=== PATIENT | female | born 1960 | race African-American/Black ===

== ENCOUNTER 2017-02-04 12:08 | Inpatient (IN) | payer SELFPAY ==
[2017-02-04] VITALS (17 sets, daily range): BP systolic 101–153; BP diastolic 77–109; PULSE 65–82; RESP 15–32; Ht 205.7 cm; Wt 72.7 kg
[~2017-02-04] VITALS: Ht 205.7 cm; Wt 72.7 kg
[2017-02-04] MEDS ORDERED: ONDANSETRON 4 MG INJ IV STA (12:09)
[2017-02-04] MEDS ORDERED: morphine 4 MG/ML VIAL IV STA (12:09)
[2017-02-04] MEDS ORDERED: ONDANSETRON 4 MG INJ ONE (12:10)
[2017-02-04] MEDS ORDERED: morphine 4 MG/ML VIAL ONE (12:11)
[2017-02-04] MEDS ORDERED: NITROGLYCERIN 2% 1 GM OINT PKT TD STA (12:13)
[2017-02-04] MEDS ORDERED: NITROGLYCERIN (SL) 0.4 MG TAB ONE (12:13)
[2017-02-04] MEDS ORDERED: LIDOCAINE 1% (MDV) 20 ML INJ ONE (12:15)
[2017-02-04] MEDS ORDERED: IODIXANOL LOCM 100 ML BTL ONE ×3 (12:15→13:07)
[2017-02-04] MEDS ORDERED: IOHEXOL 350MG/ML 50 ML BTL ONE (12:15)
[2017-02-04] MEDS ORDERED: HEPARIN 1000 UNITS/ML 10 ML INJ ONE ×2 (12:15→12:57)
[2017-02-04] MEDS ORDERED: VERAPAMIL 5 MG INJ ONE (12:16)
[2017-02-04] MEDS ORDERED: NITROGLYCERIN (IC) 100 MCG/ML INJ ONE (12:16)
[2017-02-04] MEDS ORDERED: MIDAZOLAM 1 MG/ML 2 ML INJ ONE (12:16)
[2017-02-04] MEDS ORDERED: FENTAnyl 50 MCG/ML VIAL ONE (12:17)
--- NOTE | 2017-02-04 12:23 | ERA ---
ER Documentation Chief Complaint Date/Time DATE: 02/04/17 TIME: 12:22 Chief Complaint CHEST PAIN SINCE LAST NIGHT. HPI Patient is a 56-year-old female who smokes who presents with chest pain. The chest pain started last night. Supposedly the patient is under a significant amount of stress at home. The patient describes the chest pain as a crushing type pain that she rates as 10 out of 10. She was brought in by ambulance. She was given 3 sprays of nitroglycerin and 325 mg aspirin by paramedics. She has never had this pain before. Upon review of old medical records this is the patient's first visit to the emergency department. She does not currently have a primary doctor. ROS All systems reviewed and are negative except as per history of present illness. Allergies Allergies: Coded Allergies: No Known Allergy (Unverified , 02/04/17) PMhx/Soc Medical and Surgical Hx: pt denies Medical Hx, pt denies Surgical Hx Hx Alcohol Use: No Hx Substance Use: No Hx Tobacco Use: Yes Smoking Status: Current every day smoker FmHx Family History: coronary disease Physical Exam Vitals Vital Signs Date Time Temp Pulse Resp B/P Pulse Ox O2 Delivery O2 Flow Rate FiO2 02/04/17 12:26 77 34 170/115 Room Air 02/04/17 12:08 97.7 84 18 178/116 100 Physical Exam Const: Moderate distress secondary to pain Head: Atraumatic Eyes: Normal Conjunctiva ENT: Normal External Ears, Nose and Mouth. Neck: Full range of motion..~ No meningismus. Resp: Clear to auscultation bilaterally Cardio: Regular rate and rhythm, no murmurs Abd: Soft, non tender, non distended. Normal bowel sounds Skin: No petechiae or rashes Back: No midline or flank tenderness Ext: No cyanosis, or edema Neur: Awake and alert Psych: Normal Mood and Affect Result Diagram: 02/04/17 1220 02/04/17 1220 Results 24 hrs Laboratory Tests Test 02/04/17 12:20 White Blood Count 4.710^3/ul Red Blood Count 5.5710^6/ul Hemoglobin 17.9g/dl Hematocrit 52.4% Mean Corpuscular Volume 94.1fl Mean Corpuscular Hemoglobin 32.1pg Mean Corpuscular Hemoglobin Concent 34.2g/dl Red Cell Distribution Width 13.0% Platelet Count 69091^3/UL Mean Platelet Volume 11.4fl Neutrophils % 72.0% Lymphocytes % 23.8% Monocytes % 4.0% Eosinophils % 0.0% Basophils % 0.0% Nucleated Red Blood Cells % 0.0/100WBC Neutrophils # 3.410^3/ul Lymphocytes # 1.110^3/ul Monocytes # 0.210^3/ul Eosinophils # 0.010^3/ul Basophils # 0.010^3/ul Nucleated Red Blood Cells # 0.010^3/ul Prothrombin Time 13.2Sec Prothrombin Time Ratio 1.0 INR International Normalized Ratio 1.00 Activated Partial Thromboplast Time 31.3Sec Sodium Level 142mmol/L Potassium Level 3.8mmol/L Chloride Level 101mmol/L Carbon Dioxide Level 24mmol/L Anion Gap 21 Blood Urea Nitrogen 8mg/dl Creatinine 0.67mg/dl Glucose Level 167mg/dl Calcium Level 11.3mg/dl Troponin I 10.100ng/ml Current Medications Medications (Trade) Dose Ordered Sig/Atul Route PRN Reason Start Time Stop Time Status Last Admin Dose Admin Morphine Sulfate (morphine) 4 mg ONCE STAT IV 02/04/17 12:09 02/04/17 12:11 DC 02/04/17 12:34 Ondansetron HCl (Zofran Inj) 4 mg ONCE STAT IV 02/04/17 12:09 02/04/17 12:11 DC 02/04/17 12:34 Nitroglycerin (Nitroglycerin 2% Oint) 1 inch ONCE STAT TD 02/04/17 12:13 02/04/17 12:14 DC Nitroglycerin (Nitroglycerin (Sl Tab) 0.4 Mg) 25 tab STK-MED ONCE .ROUTE 02/04/17 12:13 02/04/17 12:14 DC Heparin Sodium (Porcine) (Heparin (1000 Units/ml)) 10,000 unit STK-MED ONCE .ROUTE 02/04/17 12:15 02/04/17 12:16 DC Lidocaine (Xylocaine 1% (Mdv) 20 ml) 20 ml STK-MED ONCE .ROUTE 02/04/17 12:15 02/04/17 12:16 DC Iohexol (Omnipaque 350mg/ ml) 50 ml STK-MED ONCE .ROUTE 02/04/17 12:15 02/04/17 12:16 DC Iodixanol 100 ml 100 ml STK-MED ONCE .ROUTE 02/04/17 12:15 02/04/17 12:16 DC Heparin Sodium/ Sodium Chloride (Heparin 1000 Units/NS (A-Line)) 1,500 ml @ ud STK-MED ONCE .ROUTE 02/04/17 12:15 02/04/17 12:16 DC Midazolam HCl (Versed) 2 mg STK-MED ONCE .ROUTE 02/04/17 12:16 02/04/17 12:17 DC Verapamil HCl (Verapamil) 5 mg STK-MED ONCE .ROUTE 02/04/17 12:16 02/04/17 12:17 DC Nitroglycerin (Nitroglycerin (Intracoronary)) 1,000 mcg STK-MED ONCE .ROUTE 02/04/17 12:16 02/04/17 12:17 DC Fentanyl (Sublimaze) 100 mcg STK-MED ONCE .ROUTE 02/04/17 12:17 02/04/17 12:18 DC Procedures/MDM EKG read by me: Rate/Rhythm: Regular rate and rhythm at a rate of 81 Intervals: Normal Impression: Significant ST elevations in V3 and V4 consistent with acute STEMI Chest x-ray shows cardiomegaly per radiology. Smoking Cessation Therapy: Pt. was lectured for greater than 3 minutes on the health risks of continued smoking and the benefits of cessation. Patient is a 56-year-old female who smokes who presents with a STEMI. She arrived to the emergency department at 1209 and a code STEMI was called at that time based on review of the pipelines superintendent EKG. The pipelines superintendent EKG had not been forwarded by the email system. I spoke with Dr. Weller the hotel operations manager compensation adjuster at 1211. The cardiac cath team was at the bedside at 1212. The patient was transferred to the cardiac Material Damage Adjuster at 1226. Dr. Weller prefers to give anticoagulation in the cardiac Material Damage Adjuster. The patient's troponin was 10 consistent with acute STEMI. The patient is self-pay and I spoke with Dr. Byrne from the panel team for admission to an ICU bed after the cath is performed. At this point I doubt pneumonia, pneumothorax, pulmonary embolism, or aortic dissection. Critical Care: Time: 35 minutes excluding all billable procedures. Treatments/Evaluations: Close monitoring and treatment of unstable vital signs, cardiorespiratory, and neurologic status, while maintaining tight balance of fluid, respiratory, and cardiac interventions. Departure Diagnosis: Primary Impression: STEMI (ST elevation myocardial infarction) Qualified Code: I21.3 - ST elevation myocardial infarction (STEMI), unspecified artery Additional Impressions: Chest pain Qualified Code: I20.9 - Chest pain due to myocardial ischemia, unspecified ischemic chest pain type Hypertension Qualified Code: I10 - Essential hypertension Condition: Critical PRESLEY BELLO MD February 04, 2017 12:23
[2017-02-04 12:24] LABS: ADD SCAN DIFF NO
[2017-02-04 12:25] LABS: HEMATOCRIT 52.4 % (37.0-47.0); HEMOGLOBIN 17.9 g/dl (12.0-16.0); LYMPHOCYTES # 1.1 10^3/ul (0.8-2.9); LYMPHOCYTES % 23.8 % (15.0-51.0); MEAN CORPUSCULAR HEMOGLOBIN 32.1 pg (29.0-33.0); MEAN CORPUSCULAR HGB CONC 34.2 g/dl (32.0-37.0); MEAN CORPUSCULAR VOLUME 94.1 fl (82.0-101.0); MEAN PLATELET VOLUME 11.4 fl (7.4-10.4); MONOCYTE # 0.2 10^3/ul (0.3-0.9); NEUTROPHIL # 3.4 10^3/ul (1.6-7.5); PLATELET COUNT 201 10^3/UL (140-415); RED BLOOD COUNT 5.57 10^6/ul (4.20-5.40); WHITE BLOOD COUNT 4.7 10^3/ul (4.8-10.8)
[2017-02-04] MEDS ORDERED: NITROGLYCERIN (SL) 0.4 MG TAB SL PRN (12:30)
--- NOTE | 2017-02-04 12:37 | RADRPT ---
PROCEDURE: XR Chest. CLINICAL INDICATION: Chest Pain. TECHNIQUE: Single frontal view of the chest was obtained COMPARISON: None FINDINGS: The heart is enlarged. The lungs are grossly clear on this single view. The defibrillator pad projects over the right hemithorax. There is no pleural effusion or pneumothorax. IMPRESSION: Cardiomegaly. Otherwise, no significant abnormalities are identified. RPTAT:AAJJ Benoit Watson Physician Date Time Electronically viewed and signed by Benoit Watson Physician on 02/04/2017 12:37 MAITE/
[2017-02-04] MEDS ORDERED: METOPROLOL 5 MG INJ ONE (12:42)
[2017-02-04] MEDS ORDERED: CLOPIDOGREL 300 MG TAB ONE (12:48)
[2017-02-04 12:55] LABS: POTASSIUM 3.8 mmol/L (3.5-5.1)
[2017-02-04 12:57] LABS: PROTIME 13.2 Sec (12.2-14.2)
[2017-02-04 12:58] LABS: CREATININE 0.67 mg/dl (0.44-1.00); PARTIAL THROMBOPLASTIN TIME 31.3 Sec (25.0-35.0)
[2017-02-04 12:59] LABS: CALCIUM 11.3 mg/dl (8.4-10.2)
[2017-02-04 13:13] LABS: TROPONIN-I 10.1 ng/ml (0.00-0.12)
--- NOTE | 2017-02-04 13:56 | CONS ---
Date/Time of Note Date/Time of Note DATE: 02/04/17 TIME: 13:46 Assessment/Plan Assessment/Plan Chief Complaint/Hosp Course 56 yo with stemi of anterior wall, post pci/drug eluting stent to prox LAD and ostial ramus. Problems: Additional Assessment/Plan Stemi anterior wall tobacco abuse chronic dyspnea probable hypertension Plan: Echo to assess lvef, suspect some degree of lv dysfunction Asa and clopidogrel carvedilol and valsartan atorvastatin high-dose check lipid panel urged smoking cessation Consultation Date/Type/Reason Admit Date/Time Date of Consultation: February 04, 2017 Reason for Consultation stemi Referring Provider: PRESLEY BELLO MD Hx of Present Illness 56 yo smoker presents with crushing cp, diaphoresis that started last night, shortly after receiving bad news about her daughter who has liver disease and is in critical condition at [facility]. Ekg showed st elevations in V3-V4 , with Qs in anterior leads, also criteria for LVH and biatrial enlargement, leading to emergent cath, which demonstrated chronically occluded nondominant RCA and acutely occluded prox LAD. Angioplasty performed of the prox LAD and also an ostial ramus lesion that was severe. LV gram not done due to elevated LVEDP. Patient pain-free post cath. Of note, pt was recently seeking medical care for dyspnea. Constitutional: no complaints Eyes: no complaints ENT: no complaints Respiratory: shortness of breath Cardiovascular: chest pain Gastrointestinal: no complaints Genitourinary: no complaints Skin: no complaints Neurologic: no complaints Endocrine: no complaints Psychological: no complaints Past Medical History Medical History: no pertinent history Past Surgical History Past Surgical Hx: no surgical history Family History Significant Family History: no pertinent family hx Social History Smoking Status: Current every day smoker Exam/Review of Systems Vital Signs Vitals Vital Signs Date Time Temp Pulse Resp B/P Pulse Ox O2 Delivery O2 Flow Rate FiO2 02/04/17 12:26 77 34 170/115 Room Air 02/04/17 12:08 97.7 100 Exam Constitutional: alert, oriented, well developed Psych: nl mood/affect, no complaints Head: atraumatic, normocephalic Eyes: EOMI, PERRL, nl conjunctiva, nl lids, nl sclera ENMT: nl external ears & nose, nl lips & teeth, nl nasal mucosa & septum Neck: non-tender, supple, No bruits, No jvd Respiratory: clear to auscultation, normal air movement Cardiovascular: nl pulses, regular rate and rhythm, No jugular venous distention (JVD), No murmurs/extra sounds Gastrointestinal: nl liver, spleen, non-tender, soft Musculoskeletal: nl extremities to inspection, nl gait and stance Extremities: normal pulses Neurological: VALUE STREAM COACH II-XII intact, nl mental status, nl speech, nl strength Skin: nl turgor, No rash or lesions Results Result Diagram: 02/04/17 1220 02/04/17 1220 Results 24 hrs Laboratory Tests Test 02/04/17 12:20 White Blood Count 4.7 L Red Blood Count 5.57 H Hemoglobin 17.9 H Hematocrit 52.4 H Mean Corpuscular Volume 94.1 Mean Corpuscular Hemoglobin 32.1 Mean Corpuscular Hemoglobin Concent 34.2 Red Cell Distribution Width 13.0 Platelet Count 201 Mean Platelet Volume 11.4 H Neutrophils % 72.0 Lymphocytes % 23.8 Monocytes % 4.0 Eosinophils % 0.0 Basophils % 0.0 Nucleated Red Blood Cells % 0.0 Neutrophils # 3.4 Lymphocytes # 1.1 Monocytes # 0.2 L Eosinophils # 0.0 Basophils # 0.0 Nucleated Red Blood Cells # 0.0 Prothrombin Time 13.2 Prothrombin Time Ratio 1.0 INR International Normalized Ratio 1.00 Activated Partial Thromboplast Time 31.3 Sodium Level 142 Potassium Level 3.8 Chloride Level 101 Carbon Dioxide Level 24 Anion Gap 21 H Blood Urea Nitrogen 8 Creatinine 0.67 Glucose Level 167 Calcium Level 11.3 H Troponin I 10.100 *H NURIS EDOUARD February 04, 2017 13:56
[2017-02-04] MEDS ORDERED: VALSARTAN 80 MG TAB PO SCH (14:00)
--- NOTE | 2017-02-04 14:08 | EN ---
Date/Time of Note Date/Time of Note DATE: 02/04/17 TIME: 14:01 Event Note Cardiology Cardiology Event Note Cardiac Catheterization Report Date of Procedure: February 04, 2017 Pre-Procedure Dx: STEMI of the anterior wall Post-Procedure Dx: STEMI due to prox lad occlusion Procedures performed: Coronary angiography, left heart catheterization, angioplasty and stent placement to the first subbranch of the prox LAD and ostial ramus Findings: Left main normal LAD 100% prox LCX large dominant, 20% mid and distal discrete lesions, OM1 is moderate sized vessel which is tortuous with a discrete 90% lesion Ramus moderate sized 70% proximal lesion RCA completely occluded proximally, likely nondominant LVEDP 38, so no lv gram performed Indications: Patient presented with chest pain starting last night, crushing in nature. EKG shows ST elevations in anterior leads. Procedure note: Informed consent obtained. Patient received sedation with versed and fentanyl. Then access obtained in right radial artery after Jose Alejandro's test, modified Seldinger technique used, 6F sheath placed. Through the sheath, heparin 5000 units, verapamil 2.5 mg and ntg 200 mcg given. Using a J-wire, [place] catheter advanced to the aortic root, engaged the LM and the RCA. Images taken with injection of contrast. It was decided to intervene on the prox RCA. First ACT was high. An FL 3.5 guide catheter was used. Patient loaded with clopidogrel while on the table. A Luge wire passed through the lesion, and a 2.5 x 12 mm balloon inflated within the lesion, followed by placement of a 3.0 x 16 mm Synergy drug-eluting stent. The stent was post dilated with a 3.5x8 mm noncompliant balloon. Next the ramus was addressed, as minimal dye had been used. This was direct stented witha 2.5 x 12 mm Synergy stent. Angiography performed in multiple projections including wire out shots, and after receiving nitroglycerin. Both stents looked well opposed with no dissection before or after. Patent left the medical laboratory technician in stable condition. Discussion: STEMI due to occlusion of prox LAD. Successful angioplasty and stenting of the ramus and the prox LAD. OM1 not intervened upon because it was a smaller vessel, though of reasonable size, and was tortuous and wanted to limit the amount of dye. It will be treated medically. Echo today, medical therapy asa and clopidogrel. Smoking cessation urged. NURIS EDOUARD February 04, 2017 14:07
[2017-02-04] MEDS ORDERED: hydrALAzine 20 MG INJ IV PRN (14:30)
[2017-02-04] MEDS ORDERED: SOD CHLORIDE 0.9% 1,000 ML IV SCH (14:30)
--- NOTE | 2017-02-04 18:51 | DS ---
DATE OF ADMISSION: 02/04/2017 DATE OF DISCHARGE: 02/04/2017 PRIMARY CARE PHYSICIAN: None. PLASTER CASTER: Dr. Osborn. CHIEF COMPLAINT: Chest pain. HOSPITAL COURSE: The patient is a 56-year-old female who yesterday evening presented with chest clara n, substernal, nonradiating, severe and associated with the worst diaphoresis ever. No known aggrav ating, no known relieving factors. Son tried to do some massage therapy. It did not help and she j ust wanted to be left alone. Pain did not resolve and therefore, she came to the emergency room. E KG was concerning for acute VA. STEMI alert was called this morning. Patient went to the catheteri zation lab and had a stent placed. No recent travel history. Last year took a trip to [place]. Her daughter is presently hospital ized at [place] with liver dysfunction and was recently placed on life support. PAST MEDICAL HISTORY: Tobacco abuse PAST SURGICAL HISTORY: None. SOCIAL HISTORY: Tobacco use. No alcohol. ALLERGIES: NO KNOWN DRUG ALLERGIES. FAMILY HISTORY: Father with lung cancer, daughter with end-stage liver disease. REVIEW OF SYSTEMS: NEUROLOGICAL: No loss of speech or vision. CARDIOVASCULAR: Positive chest pain, dyspnea, no edema. LUNGS: Positive cough, no wheezing, no fever. No hemoptysis. ABDOMEN: No pain, nausea, vomiting, diarrhea. GENITOURINARY: No abdominal pain, hematuria. MUSCULOSKELETAL: No gait dysfunction. No rash, no itching, no edema. CONSTITUTIONAL: No fevers or chills, no weight loss that I am aware of. HEMATOLOGIC: No hemoptysis, hematochezia, melena, hematuria. ENDOCRINE: No previous diabetes, dyslipidemia or thyroid dysfunction. PSYCHIATRY: The patient has a fairly stable mood without significant agitation, anxiety or depressi on. She is obviously worried about her daughter. PHYSICAL EXAMINATION: GENERAL: No pallor, no icterus, no adenopathy, no carotid bruits, no JVD. No droop. CARDIOVASCULAR: S1, S2 regular, no murmur, rub, or gallop appreciated. LUNGS: Clear to auscultation bilaterally. ABDOMEN: Bowel sounds present, nontender, nondistended. No rigidity, rebound, guarding. EXTREMITIES: Without any edema. Negative Homans sign. ASSESSMENT AND PLAN: 1. Acute anterior wall myocardial infarction. 2. Tobacco abuse. 3. Acute stress disorder. PLAN: Admit to ICU. Medical management presently for coronary artery disease. Offered nicotine pa tc, risk factor modification, supportive care for her stress. Anticipate discharge in in 48 hours if no arrhythmias, etc. Echo pending. Dictated By: DIOGO ALMODOVAR MD AC/NTS Conf#: [id number] DID#: [id number] CC: NURIS OSBORN MD;*EndCC*
--- NOTE | 2017-02-04 19:07 | RADRPT ---
Echocardiogram Report Patient Name: ARYA HINSON Gender: Female Date: 1960 Study Date: 04-Feb-2017 Revenue Cycle Manager: Kelsi Saenz RDCS Location: [facility] Ref. Physician: IMELDA EDOURAD Quality: Adequate Procedures: Transthoracic echocardiogram with complete 2D, M-Mode, and doppler examination. Indications: Myocardial Infarction, LV dysfunction. 2D/M Mode Doppler Measurement Value Normal Ranges Measurement Value Normal Ranges LVIDd 2D 6.1 3.5 - 5.6 cm AV Peak Vic 1.2 m/sec LVIDs 2D 5.2 2.1 - 4.1 cm AV Peak PG 5.4 mmHg LVPWd 2D 0.7 0.6 - 1.1 cm LVOT Peak Vic 1.0 m/sec IVSd 2D 1.4 0.6 - 1.1 cm LVOT Peak PG 4.1 mmHg AoR Diam 2D 2.9 2.0 - 3.7 cm MV E Peak Vic 0.4 m/sec EDV 2D 187.1 cm3 MV A Peak Vic 0.5 m/sec ESV 2D 138.3 cm3 MV E/A 0.9 LA Dimen 2D 4.1 2.3 - 4.0 cm MV Decel Time 390 msec MV Decel [place] 1 MV E/A 0.9 TR Peak Vic 3.0 m/sec TR Peak PG 35.5 mmHg RVSP 44.0 mmHg Findings Left Ventricle: Moderate asymmetric septal hypertrophy. Mild enlargement of left ventricle cavity. Moderate left ventricular systolic dysfunction. Ejection fraction is visually estimated at 35 %. Tissue Doppler/Mitral Doppler indices are consistent with impaired relaxation (Stage I diastolic dysfunction). These segments of the LV are akinetic anterior apex segment, mid anterior segment, inferior apex segment, mid septum segment, anteroseptum mid segment and Lateral apex segment. Right Ventricle: Normal right ventricular size. Normal right ventricular systolic function. Left Atrium: There is mild enlargement of left atrium. Right Atrium: The right atrium is normal in size. Mitral Valve: Mitral valve leaflets appear mildly thickened. Mild mitral annular calcification. Moderate mitral valve regurgitation. The regurgitation jet is eccentrically directed which may underestimate the severity of mitral regurgitation. Aortic Valve: Aortic cusps appear mildly calcified. Tricuspid Valve: Normal appearance of the tricuspid valve. Estimated peak PA systolic pressure 44 mmHg. There is moderate tricuspid regurgitation. Pulmonic Valve: Pulmonic valve not well visualized. There is mild pulmonic regurgitation. Pericardium: Normal pericardium with no significant pericardial effusion. Aorta: Normal aortic root. IVC: Normal size and normal respiratory collapse consistent with normal right atrial pressure. Conclusions Fair to good quality study. Dilated left ventricle with moderately reduced systolic function with LAD distribution wall motion abnormalities as described above. Asymmetric septal hypertrophy, no gradient across the LVOT noted on this study. Mild left atrial enlargement. Moderate eccentric mitral regurgitation. Moderate triciuspid regurgitation with mild pulmonary hypertension. Grade 1 diastolic dysfunction. Electronically Signed By: Imelda Edouard 04-Feb-2017 19:06:48 -0700 Patient Name: ARYA HINSON Study Date: 04-Feb-2017 [id number]
[2017-02-04] MEDS ORDERED: ATORVASTATIN 80 MG TAB PO SCH (21:00)
[2017-02-05] VITALS (24 sets, daily range): BP systolic 117–146; BP diastolic 69–101; PULSE 76–90; RESP 17–35
[2017-02-05 02:48] LABS: CREATINE KINASE 3945 IU/L (23-200)
[2017-02-05 05:57] LABS: ADD SCAN DIFF NO
[2017-02-05 06:00] LABS: BASOPHILS % 0.2 % (0.0-2.0); EOSINOPHILS % 0.2 % (0.0-7.0); HEMATOCRIT 43.3 % (37.0-47.0); HEMOGLOBIN 14.7 g/dl (12.0-16.0); LYMPHOCYTES % 19.7 % (15.0-51.0); MEAN CORPUSCULAR HEMOGLOBIN 31.8 pg (29.0-33.0); MEAN CORPUSCULAR HGB CONC 33.9 g/dl (32.0-37.0); MEAN CORPUSCULAR VOLUME 93.7 fl (82.0-101.0); MEAN PLATELET VOLUME 11.3 fl (7.4-10.4); MONOCYTE # 0.4 10^3/ul (0.3-0.9); MONOCYTES % 7.5 % (0.0-11.0); NEUTROPHIL # 3.7 10^3/ul (1.6-7.5); NEUTROPHILS % 72.2 % (39.0-77.0); PLATELET COUNT 155 10^3/UL (140-415); RED BLOOD COUNT 4.62 10^6/ul (4.20-5.40); WHITE BLOOD COUNT 5.1 10^3/ul (4.8-10.8)
[2017-02-05 06:21] LABS: POTASSIUM 3.8 mmol/L (3.5-5.1)
[2017-02-05 06:23] LABS: CREATININE 0.69 mg/dl (0.44-1.00)
[2017-02-05 06:24] LABS: CALCIUM 10.4 mg/dl (8.4-10.2); CHOL/HDL RATIO 3.2 RATIO
--- NOTE | 2017-02-05 07:09 | PN ---
Date/Time of Note Date/Time of Note DATE: 02/05/17 TIME: 07:00 Assessment/Plan VTE Prophylaxis VTE Prophylaxis Intervention: ambulation Lines/Catheters IV [facility] Urinary Cath still in place: No Assessment/Plan Chief Complaint/Hosp Course 56 yo with stemi of anterior wall, post pci/drug eluting stent to prox LAD and ostial ramus. Problems: Assessment/Plan Impression: Anterior wall STEMI, with presentation after at least 18 hours of pain, occurring in the setting of bad news about her daughter's health Cardiomyopathy, ischemic, with question of possible underlying cardiomyopathy given that her LV is dilated Tobacco abuse Probable hypertension Plan: Stable for discharge, gave patient card for my [place] office, asked her to call for an appointment to be seen on Friday ASA and clopidogrel for stent patency post DC, emphasized importance of compliance Atorvastatin 80 mg for secondary prevention Increasing carvedilol to 12.5 mg bid and valsartan to 160 mg po daily, both for cardiomyopathy Smoking cessation urged Healthy food choices encouraged, fruits and vegetables, exercise Briefly discussed managing stress yesterday Subjective 24 Hr Interval Summary Free Text/Dictation No pain, ambulated last night. Respiratory: No shortness of breath Cardiovascular: No chest pain Exam/Review of Systems Vital Signs Vitals Vital Signs Date Time Temp Pulse Resp B/P Pulse Ox O2 Delivery O2 Flow Rate FiO2 02/05/17 06:00 81 23 137/92 95 Room Air 02/05/17 04:30 98.7 2.0 Intake and Output 02/04/17 02/04/17 02/05/17 15:00 23:00 07:00 Intake Total 1380 ml 340 ml Output Total 850 ml 600 ml Balance 530 ml -260 ml Exam Constitutional: alert, oriented, well developed Psych: nl mood/affect, no complaints Head: atraumatic, normocephalic Eyes: EOMI, nl conjunctiva ENMT: nl external ears & nose, nl lips & teeth, nl nasal mucosa & septum Neck: No bruits, No jvd Respiratory: normal air movement, other (rhonchi at both bases) Cardiovascular: regular rate and rhythm, No murmurs/extra sounds Gastrointestinal: nl liver, spleen, non-tender, soft Musculoskeletal: nl extremities to inspection Extremities: normal pulses, No edema Neurological: nl mental status, nl speech, nl strength Skin: nl turgor, No rash or lesions Additional Comments right radial cath site intact, normal radial pulse, hand warm, good strength Results echo yesterday which I reviewed, lvef 35%, large LAD wall motion abnormality, LV is mildly dilated, septal hypertrophy, mild pulmonary hypertension Result Diagram: 02/05/17 0537 02/05/17 0537 Results 24 hrs Laboratory Tests Test 02/04/17 12:20 02/04/17 17:52 02/05/17 00:30 02/05/17 05:37 White Blood Count 4.7 L 5.1 Red Blood Count 5.57 H 4.62 Hemoglobin 17.9 H 14.7 Hematocrit 52.4 H 43.3 Mean Corpuscular Volume 94.1 93.7 Mean Corpuscular Hemoglobin 32.1 31.8 Mean Corpuscular Hemoglobin Concent 34.2 33.9 Red Cell Distribution Width 13.0 13.0 Platelet Count 201 155 # Mean Platelet Volume 11.4 H 11.3 H Neutrophils % 72.0 72.2 Lymphocytes % 23.8 19.7 Monocytes % 4.0 7.5 Eosinophils % 0.0 0.2 Basophils % 0.0 0.2 Nucleated Red Blood Cells % 0.0 0.0 Neutrophils # 3.4 3.7 Lymphocytes # 1.1 1.0 Monocytes # 0.2 L 0.4 Eosinophils # 0.0 0.0 Basophils # 0.0 0.0 Nucleated Red Blood Cells # 0.0 0.0 Prothrombin Time 13.2 Prothrombin Time Ratio 1.0 INR International Normalized Ratio 1.00 Activated Partial Thromboplast Time 31.3 Sodium Level 142 141 Potassium Level 3.8 3.8 Chloride Level 101 103 Carbon Dioxide Level 24 28 Anion Gap 21 H 14 # Blood Urea Nitrogen 8 7 Creatinine 0.67 0.69 Glucose Level 167 129 Calcium Level 11.3 H 10.4 H Troponin I 10.100 *H 307.000 *H 166.000 *H Pending Creatine Kinase 8544 H 3945 #H Creatine Kinase Index 4.2 Creatinine Kinase MB (Mass) 355.00 H 194.00 H Triglycerides Level 100 Cholesterol Level 141 LDL Cholesterol, Calculated 78 HDL Cholesterol 43 Cholesterol/HDL Ratio 3.2 Medications Medications Current Medications Aspirin (Aspirin) 81 mg DAILY PO ; Start 02/05/17 at 09:00 Atorvastatin Calcium (Lipitor) 80 mg HS PO Last administered on 5/9/17at 20:53 ; Admin Dose 80 MG; Start 02/04/17 at 21:00 Carvedilol (Coreg) 6.25 mg BID PO Last administered on 02/04/17 20:53; Admin Dose 6.25 MG; Start 02/04/17 at 21:00 Valsartan (Diovan) 80 mg DAILY PO Last administered on 02/04/17 15:02; Admin Dose 80 MG; Start 02/04/17 at 14:00 Clopidogrel Bisulfate (plaVIX) 75 mg DAILY PO ; Start 02/05/17 at 09:00 Hydralazine HCl (Apresoline) 10 mg Q2H PRN IV ELEVATED BLOOD PRESSURE; Start at 14:30 NURIS EDOUARD February 05, 2017 07:09
[2017-02-05] MEDS ORDERED: ASPIRIN 81 MG TAB PO SCH (09:00)
[2017-02-05] MEDS ORDERED: CLOPIDOGREL 75 MG TAB PO SCH (09:00)
[2017-02-05] MEDS ORDERED: VALSARTAN 160 MG TAB PO SCH (09:00)
--- NOTE | 2017-02-05 10:15 | RADRPT ---
Vent Rate: 66 bpm RR Interval: 0 msec NC Interval: 146 msec QRS Duration: 80 msec QT Interval: 480 msec QTC Interval: 503 msec P-R-T [place]: 61 - -26 - 0 degrees Age and gender specific ECG analysis Normal sinus rhythm Biatrial enlargement Left ventricular hypertrophy Anteroseptal infarct , possibly acute T wave abnormality, consider inferolateral ischemia Prolonged QT ACUTE NC Abnormal ECG Electronically Signed By: Trae Hunter [id number]
[2017-02-05] MEDS ORDERED: HYDROCODONE/APAP (5/325) TAB PO PRN (15:30)
--- NOTE | 2017-02-05 15:48 | PDOCDIS ---
Discharge Instructions DIAGNOSIS Discharge Diagnosis: heart attack CONDITION Patient Condition: Stable HOME CARE INSTRUCTIONS: Diet Instructions: low fat low chol 2 g naSpecial Diet: cardiacYour diet recommendation is: cardiac diet ACTIVITY: Activity Restrictions: Slowly Increase Activity Rest between Activity Avoid heavy lifting Avoid Heavy Housework Bathing Restrictions: n/aActivity Restrictions Comment: as tolerated FOLLOW UP/APPOINTMENTS Appointments appt pcp 1week Dr Irena Tracyfriday DIOGO ALMODOVAR MD February 05, 2017 15:48
[2017-02-05] MEDS ORDERED: VALS160T20 PO (15:51)
[2017-02-05] MEDS ORDERED: CARV12.579 PO (15:51)
[2017-02-05] MEDS ORDERED: ATOR80TA75 PO (15:51)
[2017-02-05] MEDS ORDERED: CLOP75TA28 PO (15:51)
[2017-02-05] MEDS ORDERED: ASPI81TA3 PO (15:51)
[2017-02-05] MEDS ORDERED: NIT4 SL (15:51)
[2017-02-05] MEDS ORDERED: ACETAMINOPHEN 325 MG TAB PO PRN (16:00)
--- NOTE | 2017-02-05 16:05 | HP ---
DATE OF ADMISSION: 02/04/2017 PRIMARY CARE PHYSICIAN: None. COAL TRAM DRIVER: Dr. Osborn. CHIEF COMPLAINT: Chest pain. HOSPITAL COURSE: The patient is a 56-year-old female who yesterday evening presented with chest clara n, substernal, nonradiating, severe and associated with the worst diaphoresis ever. No known aggrav ating, no known relieving factors. Son tried to do some massage therapy. It did not help and she j ust wanted to be left alone. Pain did not resolve and therefore, she came to the emergency room. E KG was concerning for acute WI. STEMI alert was called this morning. Patient went to the catheteri zation lab and had a stent placed. No recent travel history. Last year took a trip to [place]. Her daughter is presently hospital ized at [facility] with liver dysfunction and was recently placed on life support. PAST MEDICAL HISTORY: Tobacco abuse PAST SURGICAL HISTORY: None. SOCIAL HISTORY: Tobacco use. No alcohol. ALLERGIES: NO KNOWN DRUG ALLERGIES. FAMILY HISTORY: Father with lung cancer, daughter with end-stage liver disease. REVIEW OF SYSTEMS: NEUROLOGICAL: No loss of speech or vision. CARDIOVASCULAR: Positive chest pain, dyspnea, no edema. LUNGS: Positive cough, no wheezing, no fever. No hemoptysis. ABDOMEN: No pain, nausea, vomiting, diarrhea. GENITOURINARY: No abdominal pain, hematuria. MUSCULOSKELETAL: No gait dysfunction. No rash, no itching, no edema. CONSTITUTIONAL: No fevers or chills, no weight loss that I am aware of. HEMATOLOGIC: No hemoptysis, hematochezia, melena, hematuria. ENDOCRINE: No previous diabetes, dyslipidemia or thyroid dysfunction. PSYCHIATRY: The patient has a fairly stable mood without significant agitation, anxiety or depressi on. She is obviously worried about her daughter. PHYSICAL EXAMINATION: GENERAL: No pallor, no icterus, no adenopathy, no carotid bruits, no JVD. No droop. CARDIOVASCULAR: S1, S2 regular, no murmur, rub, or gallop appreciated. LUNGS: Clear to auscultation bilaterally. ABDOMEN: Bowel sounds present, nontender, nondistended. No rigidity, rebound, guarding. EXTREMITIES: Without any edema. Negative Homans sign. ASSESSMENT AND PLAN: 1. Acute anterior wall myocardial infarction. 2. Tobacco abuse. 3. Acute stress disorder. PLAN: Admit to ICU. Medical management presently for coronary artery disease. Offered nicotine pa tch, risk factor modification, supportive care for her stress. Anticipate discharge in in 48 hours if no arrhythmias, etc. Echo pending. Dictated By: DIOGO ALMODOVAR MD AC/NTS Conf#: [id number] DID#: [id number] CC: NURIS OSBORN MD;*EndCC*
[2017-02-05] MEDS ORDERED: Nicotine (14 Mg/24 Hr) TRANSDERM (16:06)
[2017-02-05] MEDS ORDERED: BISACODYL (EC) 5 MG TAB PO ONE (16:30)
--- NOTE | 2017-02-05 17:51 | DS ---
DATE OF ADMISSION: 02/04/2017 DATE OF DISCHARGE: 02/05/2017 PRIMARY CARE PHYSICIAN: Unknown. JOB HAND: Dr. Imelda Osborn. DIAGNOSES ON DISCHARGE: 1. ST elevated myocardial infarction. 2. Ischemic cardiomyopathy. 3. Tobacco abuse. 4. Likely hypertension. 5. Adjustment disorder. HOSPITAL COURSE: A 56-year-old female admitted with chest pain. EKG concerning for acute STEMI. She underwent cardiac catheterization. Presently stable and fit for discharge. The patient needs risk factor modification and followup. PROCEDURES: A 2D echo, EF of 35%, moderate LV systolic dysfunction, multiple hypokinetic akinetic segments, moderate TR, mild pulmonary hypertension. PA pressure of 44. Cardiac catheterization saad wed a chronically occluded nondominant RCA and acutely occluded proximal LAD. She obviously had a d rug-eluting stent placed with angioplasty of the proximal LAD and osseous rami. DISCHARGE PLAN: Home. FOLLOWUP: With her primary next Friday, I believe. DIET: Cardiac. ACTIVITY: No heavy lifting, no new exercise program. DURABLE MEDICAL EQUIPMENT: None. CODE STATUS: FULL. CONDITION: Stable. BARRIERS TO DISCHARGE: None. PENDING TESTS: None. FUNCTIONAL STATUS: The patient awake, alert agrees to the plan of care. CONDITION: Stable. REASON FOR ADMISSION: Acute coronary syndrome. ALLERGIES: NO KNOWN DRUG ALLERGIES. LABORATORY DATA: Chest x-ray: No acute process. MRSA screening in process but obviously asymptoma tic for any such results. CMP: Sodium 141, potassium 3.8, chloride 100, bicarbonate 28, BUN 7, creatinine 0.6, glucose 120. Troponin diminished, triglycerides 100, total of 141, LDL of 78, HDL 43. INR 1. White cell count o f 5, hemoglobin and hematocrit of 14 and 43, platelets of 155. DISCHARGE MEDICATIONS: 1. Aspirin 81 daily. 2. Lipitor 80 daily. 3. Coreg 12.5 b.i.d. 4. Lopressor 25 daily. 5. NitroQuick as a day. 6. Diovan 160 daily. 7. Tylenol as needed. 8. Clsj-zkd-gkwgazs Nicotine patch as directed. 9. Not a candidate for CLINTON inhibitor at this time, nonsmoking today. Consider CMP in 2 weeks to assess liver function and creatinine with new ARB. Will need liver funct ion tests and cholesterol level in 6 weeks and consider diuretics and spironolactone if needed for c ardiomyopathy or congestive heart failure remains. Dictated By: DIOGO RICKS/ABDIFATAH Conf#: [id number] DID#: [id number] CC: IMELDA OSBORN MD;*EndCC*
[2017-02-06 08:00] VITALS: PULSE 93
[2017-02-06] MEDS ORDERED: NICOTINE (14 MG/24 HR) PATCH TRANSDERM SCH (09:00)
== END 2017-02-05 18:05 | disposition home or self-care (01) | DRG 247 ==
LOC: E/R 12:08 → CCL 12:26 → SDS 12:26 → ICU 13:06 → CCL 13:09
PROVIDERS: ADMIT Internal Medicine Interventional Cardiology; ATTEND Internal Medicine Interventional Cardiology
PROC: 027135Z Dilation of Coronary Artery, Two Arteries with Two Drug-eluting Intraluminal Devices, Percutaneous Approach (ICD-10-PCS; principal; 2017-02-04)
PROC: 4A023N7 Measurement of Cardiac Sampling and Pressure, Left Heart, Percutaneous Approach (ICD-10-PCS; 2017-02-04)
PROC: B211YZZ Fluoroscopy of Multiple Coronary Arteries using Other Contrast (ICD-10-PCS; 2017-02-04)
DX: I21.02 ST elevation (STEMI) myocardial infarction involving left anterior descending coronary artery (principal); F17.200 Nicotine dependence, unspecified, uncomplicated; I25.10 Atherosclerotic heart disease of native coronary artery without angina pectoris; F43.9 Reaction to severe stress, unspecified; I25.5 Ischemic cardiomyopathy; Z72.0 Tobacco use
CPT/HCPCS: 36415; 71010; 80048; 80061; 82550; 82553; 84484; 85025; 85610; 85730; 87081; 93005; 93306; 93458; 96374; 96375; C1725; C1769; C1874; C1887; C9606; J1644; J2250; J2270; J2405; J3010; J7030; Q9967

== ENCOUNTER 2017-02-11 20:04 | Inpatient (IN) | payer MEDICAID ==
[~2017-02-11] VITALS: Ht 167.6 cm; Wt 77.3 kg
[~2017-02-11 20:04] MED LIST: ASPI81TA3 PO; ATOR80TA75 PO; CARV12.579 PO; CLOP75TA28 PO; NIT4 SL; Nicotine (14 Mg/24 Hr) TRANSDERM; VALS160T20 PO
--- NOTE | 2017-02-11 20:15 | ERA ---
ER Documentation Chief Complaint Date/Time DATE: 02/11/17 TIME: 20:12 Chief Complaint HPI Patient is a 56-year-old female who presents with sudden onset, constant, moderate to severe right facial droop, right arm weakness and difficulty speaking starting at 7:30 PM. Patient was with her son, who called 911 immediately. There was no loss of consciousness, no seizure activity. The patient was hospitalized 1 week ago for stent placement for an acute anterior ST elevation TN. Patient denies having chest pain, shortness of breath, headache, dizziness today. No vomiting, no fall or trauma. ROS All systems reviewed and are negative except as per history of present illness. Medications Home Meds Active Scripts Aspirin (Aspirin) 81 Mg Chew, 81 MG PO DAILY for 30 Days, #30 TAB 6 Refills Prov:DIOGO ALMODOVAR MD 02/05/17 Valsartan* (Diovan*) 160 Mg Tablet, 160 MG PO DAILY for 14 Days, #14 TAB Prov:DIOGO ALMODOVAR MD 02/05/17 Nitroglycerin* (Nitrostat*) 0.4 Mg Tab.subl, 1 TAB SL .Q5M UP TO 3 DOSES Y for CHEST PAIN for 7 Days, #10 1 Refill Prov:DIOGO ALMODOVAR MD 02/05/17 Carvedilol* (Carvedilol*) 12.5 Mg Tablet, 12.5 MG PO BID for 14 Days, #30 TAB Prov:DIOGO ALMODOVAR MD 02/05/17 Atorvastatin* (Atorvastatin*) 80 Mg Tablet, 80 MG PO HS for 30 Days, #30 TAB 1 Refill Prov:DIOGO ALMODOVAR MD 02/05/17 Discontinued Scripts [Nicotine (14 Mg/24 Hr)] 1 PATCH PATCH No Conflict Check, 1 PATCH TRANSDERM DAILY for 14 Days, #10 Prov:DIOGO ALMODOVAR MD 02/05/17 Clopidogrel Bisulfate (Clopidogrel) 75 Mg Tablet, 75 MG PO DAILY for 30 Days, # 30 TAB 6 Refills Prov:DIOGO ALMODOVAR MD 02/05/17 Allergies Allergies: Coded Allergies: No Known Allergy (Unverified , 02/11/17) PMhx/Soc Past medical history: STEMI, CAD, hypertension Past surgical history: Stent placement 1 week ago Social history: Smokes tobacco, no alcohol or illicit drugs History of Surgery: No Anesthesia Reaction: No (unknown) Hx Neurological Disorder: No Hx Respiratory Disorders: No Hx Cardiac Disorders: No Hx Psychiatric Problems: No Hx Miscellaneous Medical Probl: No Hx Alcohol Use: No Hx Substance Use: No Hx Tobacco Use: Yes FmHx Family History: No coronary disease, No diabetes Physical Exam Vitals Vital Signs Date Time Temp Pulse Resp B/P Pulse Ox O2 Delivery O2 Flow Rate FiO2 02/11/17 23:55 76 19 130/97 100 02/11/17 23:25 78 20 136/88 100 02/11/17 22:55 76 16 132/79 100 02/11/17 22:40 81 20 128/84 100 02/11/17 22:25 74 19 124/78 100 02/11/17 22:10 76 22 106/80 100 02/11/17 21:55 84 19 115/72 100 02/11/17 21:40 80 20 123/79 100 02/11/17 21:25 79 18 127/91 100 02/11/17 21:10 79 20 140/86 100 02/11/17 20:55 78 18 140/96 100 02/11/17 20:39 Nasal Cannula 3.0 02/11/17 20:26 Nasal Cannula 3 02/11/17 20:20 99 3.0 30 02/11/17 20:05 98.4 78 17 146/94 100 Physical Exam Const: Alert, in no acute distress Head: Atraumatic Eyes: Normal Conjunctiva, no pallor, no icterus ENT: Normal External Ears, Nose and Mouth. Neck: Full range of motion..~ No meningismus. No JVD Resp: Clear to auscultation bilaterally, no wheezes, no rales Cardio: Regular rate and rhythm, no murmurs Abd: Soft, non tender, non distended. Normal bowel sounds Skin: No petechiae or rashes Back: No midline or flank tenderness Ext: No cyanosis, or edema Neur: Awake and alert, partial productive aphasia, right facial droop, left arm strength 3 out of 5, negative Babinski. Psych: Normal Mood and Affect Result Diagram: 02/11/17200902/11/172009 Results 24 hrs Laboratory Tests Test 02/11/17 20:10 White Blood Count 4.010^3/ul Red Blood Count 4.3810^6/ul Hemoglobin 14.0g/dl Hematocrit 41.5% Mean Corpuscular Volume 94.7fl Mean Corpuscular Hemoglobin 32.0pg Mean Corpuscular Hemoglobin Concent 33.7g/dl Red Cell Distribution Width 12.5% Platelet Count 65683^3/UL Mean Platelet Volume 11.1fl Neutrophils % 50.5% Lymphocytes % 35.8% Monocytes % 12.1% Eosinophils % 0.8% Basophils % 0.5% Nucleated Red Blood Cells % 0.0/100WBC Neutrophils # 2.010^3/ul Lymphocytes # 1.410^3/ul Monocytes # 0.510^3/ul Eosinophils # 0.010^3/ul Basophils # 0.010^3/ul Nucleated Red Blood Cells # 0.010^3/ul Prothrombin Time 14.0Sec Prothrombin Time Ratio 1.1 INR International Normalized Ratio 1.08 Activated Partial Thromboplast Time 26.9Sec Sodium Level 140mmol/L Potassium Level 3.3mmol/L Chloride Level 104mmol/L Carbon Dioxide Level 27mmol/L Anion Gap 12 Blood Urea Nitrogen 6mg/dl Creatinine 0.73mg/dl Glucose Level 113mg/dl Hemoglobin A1c 5.6% Calcium Level 9.9mg/dl Total Bilirubin 0.2mg/dl Direct Bilirubin 0.00mg/dl Indirect Bilirubin 0.2mg/dl Aspartate Amino Transf (AST/SGOT) 24IU/L Alanine Aminotransferase (ALT/SGPT) 23IU/L Alkaline Phosphatase 103IU/L Creatine Kinase 68IU/L Creatine Kinase Index 1.6 Creatinine Kinase MB (Mass) 1.12ng/ml Troponin I 2.630ng/ml Total Protein 8.0g/dl Albumin 3.5g/dl Globulin 4.50g/dl Albumin/Globulin Ratio 0.77 Current Medications Medications (Trade) Dose Ordered Sig/Atul Route PRN Reason Start Time Stop Time Status Last Admin Dose Admin Sodium Chloride (NS) 50 ml @ 0 mls/hr FLUSH AFTER TPA ONCE IV 02/11/17 20:30 02/11/17 20:33 DC 02/11/17 20:30 Alteplase, Recombinant (Activase) 6.6 mg BOLUS OVER 1 MIN ONCE IV* 02/11/17 20:30 02/11/17 20:33 DC 02/11/17 21:30 Alteplase, Recombinant 59.1 mg 59.1 mg ISCHEMIC STROKE ONCE IV* 02/11/17 20:30 02/11/17 20:33 DC 02/11/17 21:31 Sodium Chloride (NS) 50 ml @ 0 mls/hr FLUSH AFTER TPA ONCE IV 02/11/17 20:30 02/11/17 20:33 DC IV Flush 10 ml 10 ml STK-MED ONCE .ROUTE 02/11/17 21:00 02/11/17 21:01 DC 02/11/17 21:22 Sodium Chloride 100 ml @ ud STK-MED ONCE .ROUTE 02/11/17 21:00 02/11/17 21:01 DC 02/11/17 21:22 Iohexol (Omnipaque) 100 ml @ ud STK-MED ONCE .ROUTE 02/11/17 21:00 02/11/17 21:01 DC 02/11/17 21:22 Metoclopramide HCl (Reglan) 10 mg ONCE ONCE IV 02/11/17 22:00 02/11/17 22:01 DC 02/11/17 21:40 Procedures/MDM Spoke with Dr. Sheehan, on-call cardiology at 8:20 PM. She states that the patient had ejection fraction approximately 35%. EKG read by me: Time 2006, rate 83 Rhythm: Normal sinus [place]: Left axis deviation Intervals: Left anterior fascicular block ST-T waves: [address] elevation V3 and V4, no ST depression, T-wave inversion 1 and aVL Ectopy: No Q-waves: Likely Q waves V3 and V4, LVH Impression: ST elevation in anterior leads is unchanged from prior EKG last week. Time 938: Patient reports moderate left occipital headache. She states that started before she went for CTA. CTA did not show any signs of bleeding. Patient was advised to keep us updated of any change in her headache, and I will order Reglan for treatment of pain. Blood pressure remained stable, there is some improvement in function of the right arm. Patient has a mild oozing of blood from the right lower gums. ED course: Code stroke was called on patient arrival. Patient was expedited to CT scan, and was found to have no evidence of bleed. Tele-neurology, Dr. Lang, was consulted and evaluated the patient. I had extensive discussion with the patient and her son regarding the risks and benefits of TPA, and the tele-neurologist it as well. The patient and son were consented for TPA administration, and TPA was administered at 1 hour 30 minutes from the onset of symptoms. A CT angiogram was performed based on the telemetry neurologist's recommendation. MDM: Patient is a 56-year-old female with recent hospital admission for STEMI who presents with acute right facial droop, right arm weakness, and partial productive aphasia. Code stroke was activated, and the patient was administered TPA in an expedited fashion. I reviewed all the patient's indications and contraindications and the only relative contraindication was recent arterial puncture for catheterization. There is no immediate complication from TPA, except for mild oozing of the patient's gums. The patient did have some improvement in symptoms after administration of TPA. The patient did have evidence of STEMI on EKG, but was unchanged from her prior EKG , and her elevated troponin is likely due to downtrending troponin from the pre- prior TN. The patient denied chest pain or shortness of breath. The patient was not a candidate for [employer] given acute stroke requiring TPA. I did speak with Dr. Sheehan, and she will consult on the patient as an inpatient. Given the absence of symptoms consistent with an acute TN, as well as likely Q waves associated with the ST elevation, I do not suspect recurrent STEMI. However the patient does have new stents which are at risk for rethrombosis. With regard to the cause of the patient's stroke, I suspect that the patient may have interval aneurysm or impaired systolic function which increases her risk for intracardiac clot. CT angiogram was performed after administration of TPA, and showed a left MCA M2 segment partial occlusion. This was not a lesion that would require interventional treatment. The patient was admitted to Dr. Collier. Critical Care Time: 42 minutes Treatments/Evaluations: Close monitoring and treatment of unstable vital signs, cardiorespiratory, and neurologic status, while maintaining tight balance of fluid, respiratory, and cardiac interventions. This time includes discussing the case with the patient and the patient's family. This time does not include all procedures stated elsewhere in this record. This time also includes reviewing old records, labs and radiological studies. This time includes examining and re-examining the patient. Additionally, this time also includes arranging care with admitting and consulting physicians. Departure Diagnosis: Primary Impression: Acute ischemic left MCA stroke Condition: Stable FUAD SANON MD February 11, 2017 20:15
[2017-02-11 20:16] LABS: ADD SCAN DIFF NO
[2017-02-11 20:18] LABS: BASOPHILS % 0.5 % (0.0-2.0); EOSINOPHILS % 0.8 % (0.0-7.0); HEMATOCRIT 41.5 % (37.0-47.0); LYMPHOCYTES # 1.4 10^3/ul (0.8-2.9); LYMPHOCYTES % 35.8 % (15.0-51.0); MEAN CORPUSCULAR HGB CONC 33.7 g/dl (32.0-37.0); MEAN CORPUSCULAR VOLUME 94.7 fl (82.0-101.0); MEAN PLATELET VOLUME 11.1 fl (7.4-10.4); MONOCYTE # 0.5 10^3/ul (0.3-0.9); MONOCYTES % 12.1 % (0.0-11.0); NEUTROPHILS % 50.5 % (39.0-77.0); PLATELET COUNT 194 10^3/UL (140-415); RED BLOOD COUNT 4.38 10^6/ul (4.20-5.40); RED CELL DISTRIBUTION WIDTH 12.5 % (11.5-14.5)
--- NOTE | 2017-02-11 20:22 | RADRPT ---
PROCEDURE: CT head, without contrast. CLINICAL INDICATION: Possible Stroke TECHNIQUE: Noncontrast CT examination of the head, with axial, sagittal and coronal reformatted im ages. Automated dose exposure control was employed. CTDI: 43.11 and DLP: 823.61. COMPARISON: None. FINDINGS: No acute hemorrhage. Subarachnoid spaces are substantially preserved and symmetric. Ventricles ar e unremarkable. No mass effect. Mccoy-white matter distinction is preserved without evident decreased attenuation t o suggest acute or recent infarct. Sinuses and osseous structures are unremarkable. IMPRESSION: No acute process in the head. These findings and impression were discussed with Dr. Toledo of the [facility] department at the conclusion of this examination by the undersigned interpreting radiologist. RPTAT: UU Physician Juli Date Time Electronically viewed and signed by Physician Juli on 02/11/2017 20:22 /
[2017-02-11] MEDS ORDERED: SOD CHLORIDE 0.9% 50 ML IV ONE ×2 (20:30)
[2017-02-11] MEDS ORDERED: ALTEPLASE (tPA) 1 MG/ML BOLUS SYG IV* ONE (20:30)
[2017-02-11] MEDS ORDERED: ALTEPLASE 100 MG INJ IV* ONE (20:30)
--- NOTE | 2017-02-11 20:35 | RADRPT ---
PROCEDURE: XR Chest. CLINICAL INDICATION: Shortness of breath TECHNIQUE: Single frontal chest x-ray. COMPARISON: 02/04/2017 FINDINGS: The lungs are clear. No focal opacification is seen. No pneumothorax or pleural effusion is seen. The heart size is enlarged. Otherwise, the cardiomediastinal silhouette is unremarkable. Moderat e to severe left shoulder degenerative changes are noted. IMPRESSION: 1. No evidence of acute cardiopulmonary disease. 2. Cardiomegaly. 3. Moderate to severe left shoulder degenerative changes. RPTAT: HRAA .Juan Borrego MD, Date Time Electronically viewed and signed by .Juan Borrego MD, MD on 02/11/2017 20:35 .A/
[2017-02-11 20:40] LABS: ALBUMIN 3.5 g/dl (3.3-4.9); ALBUMIN/GLOBULIN RATIO 0.77; BILIRUBIN,INDIRECT 0.2 mg/dl (0-1.1); BILIRUBIN,TOTAL 0.2 mg/dl (0.2-1.3); CALCIUM 9.9 mg/dl (8.4-10.2); CREATININE 0.73 mg/dl (0.44-1.00); POTASSIUM 3.3 mmol/L (3.5-5.1)
[2017-02-11 20:52] LABS: CK-MB 1.12 ng/ml (0.0-2.4)
[2017-02-11 20:54] LABS: TROPONIN-I 2.63 ng/ml (0.00-0.12)
[2017-02-11 20:58] LABS: INR 1.08; PARTIAL THROMBOPLASTIN TIME 26.9 Sec (25.0-35.0); PT RATIO 1.1
[2017-02-11] MEDS ORDERED: SOD CHLORIDE 0.9% 100 ML ONE (21:00)
[2017-02-11] MEDS ORDERED: IOHEXOL 100 ML ONE (21:00)
--- NOTE | 2017-02-11 21:03 | STROKE ---
Date/Time of Note Date/Time of Note DATE: 02/11/17 TIME: 20:57 Patient Information General Patient location: emergency Arrival Date Age 56 Gender female Weight 73 kg Vital Signs Vital Signs Vital Signs Date Time Temp Pulse Resp B/P Pulse Ox O2 Delivery O2 Flow Rate FiO2 02/11/17 20:39 Nasal Cannula 3.0 02/11/17 20:05 98.4 78 17 146/94 100 Patient History Current Medications Allergies: Coded Allergies: No Known Allergy (Unverified , 02/11/17) Labs Hematology Labs Hematology Test 02/11/17 20:10 White Blood Count 4.010^3/ul (4.8-10.8) Red Blood Count 4.3810^6/ul (4.20-5.40) Hemoglobin 14.0g/dl (12.0-16.0) Hematocrit 41.5% (37.0-47.0) Mean Corpuscular Volume 94.7fl (82.0-101.0) Mean Corpuscular Hemoglobin 32.0pg (29.0-33.0) Mean Corpuscular Hemoglobin Concent 33.7g/dl (32.0-37.0) Red Cell Distribution Width 12.5% (11.5-14.5) Platelet Count 53399^3/UL (140-415) Mean Platelet Volume 11.1fl (7.4-10.4) Neutrophils % 50.5% (39.0-77.0) Lymphocytes % 35.8% (15.0-51.0) Monocytes % 12.1% (0.0-11.0) Eosinophils % 0.8% (0.0-7.0) Basophils % 0.5% (0.0-2.0) Nucleated Red Blood Cells % 0.0/100WBC (0.0-0.0) Neutrophils # 2.010^3/ul (1.6-7.5) Lymphocytes # 1.410^3/ul (0.8-2.9) Monocytes # 0.510^3/ul (0.3-0.9) Eosinophils # 0.010^3/ul (0.0-0.5) Basophils # 0.010^3/ul (0.0-0.1) Nucleated Red Blood Cells # 0.010^3/ul (0.0-0.0) Chemistry Labs Chemistry Test 02/11/17 20:10 Sodium Level 140mmol/L (135-144) Potassium Level 3.3mmol/L (3.5-5.1) Chloride Level 104mmol/L (97-110) Carbon Dioxide Level 27mmol/L (21-31) Anion Gap 12 (8-16) Blood Urea Nitrogen 6mg/dl (7-20) Creatinine 0.73mg/dl (0.44-1.00) Glucose Level 113mg/dl (70-220) Calcium Level 9.9mg/dl (8.4-10.2) Total Bilirubin 0.2mg/dl (0.2-1.3) Direct Bilirubin 0.00mg/dl (0.00-0.20) Indirect Bilirubin 0.2mg/dl (0-1.1) Aspartate Amino Transf (AST/SGOT) 24IU/L (15-46) Alanine Aminotransferase (ALT/SGPT) 23IU/L (13-69) Alkaline Phosphatase 103IU/L (42-121) Creatine Kinase 68IU/L (23-200) Total Protein 8.0g/dl (6.1-8.1) Albumin 3.5g/dl (3.3-4.9) Globulin 4.50g/dl (1.3-3.2) Albumin/Globulin Ratio 0.77 History & Physical Patient History Notes Pt Hx Reviewed History of Present Illness 56yo Presents with acute onset speech difficulty and right sided weakness. Symptoms began at 7:20pm. Review of Systems Constitutional: no symptoms reported EENTM: no symptoms reported Respiratory: no symptoms reported Cardiovascular: no symptoms reported Gastrointestinal: no symptoms reported Genitourinary: no symptoms reported Musculoskeletal: no symptoms reported Skin: no symptoms reported Psychiatric/Neurological: no symptoms reported NIH Stroke Scale NIH Stroke Scale 1A - Level of Conciousness: 0 - Alert keenly [id number] LOC Questions: 2 - Answers no [id number] - LOC Commands: 1 - Performs one task2 - Best Gaze: 0 - Normal3 - Visual: 2 - Complete Hemianopia4 - Facial Palsy: 1 - Partial [id number] - Motor Arm - Left: 0 - No [id number] - Motor Arm - Right: 3 - No effort to mohhyzj5H - Motor Leg - Left: 0 - No [id number] - Motor Leg - Right: 2 - Some effort to gravity7 - Limb Ataxia: 0 - Absent8 - Sensory: 0 - Normal9 - Best Language: 2 - Severe aphasiaDysarthria: 0 - NormalTotal Score: 12 Date/Time Recorded DATE: 02/11/17 TIME: 20:57 Submitted By Maribell Camarena t-PA Imaging Review Imaging Reviewed: Yes Date/Time Imaging Reviewed DATE: 02/11/17 TIME: 20:57 Imaging Findings No acute changes t-PA Administration Recommendation: Yes Weight 73 kg t-PA Recommendation Date/Time 02/11/17 20:50 Recommedation submitted by Maribell Camarena Recommendations Impression Diagnosis ischemic stroke of the left middle cerebral artery Recommendation 56yo F presents with acute onset speech diffuculty and right sided weakness. Neurological exam is notable for right arm and leg weakness and patient being mute. I believe the patient is having an acute ischemic stroke of the left middle cerebral artery. I reviewed the risks and benefits of IV TPA in detail with the patient and her son and they are agreeable to my recommendation for IV TPA. I recommend stat CTA of the head and neck to determine if the patient is a neurointerventional candidate. I recommend further workup include MRI Brain without gadolinium and transthoracic echocardiogram. I recommend post-TPA order sets be followed. I have requested I be called directly when patient goes for CTA so that I may follow up on these results. Post t-PA Order recommendation: Document q15 min vitals Document q15 min neuro checks Document q15 min bleeding checks Refer to t-PA Order Sets Diagnostic Labs: Lipid Proile Hgb A1C CMP CBC w/Diff Coags Therapy: Physical Therapy Speech Therapy Occupational Therapy Misc. Recommendations: Bedside Swallow Evaluation Pnumatic Compression Devices Avoid Montes Catheter Stroke Education Smoking Education MARIBELL CAMARENA February 11, 2017 21:03
--- NOTE | 2017-02-11 21:35 | RADRPT ---
PROCEDURE: CTA head. CLINICAL INDICATION: Focal neurologic deficit. TECHNIQUE: Direct spiral 0.63 mm axial sections were obtained through the intracranial vasculature with the use of 95 cc of Omnipaque 350 nonionic intravenous contrast material. Axial MIP, coronal, and sagittal reformations were obtained. The images were reviewed on a PACS workstation. CTDIvol: 66 .31, 33.37 mGy. DLP: 698.76 mGy-cm. COMPARISON: Brain CT performed earlier on the same date. FINDINGS: There is mild calcified atherosclerotic plaque along the bilateral cavernous and supraclinoid ICAs, without stenosis. The bilateral ACAs, right MCA, and bilateral silver cleaner are widely patent. There is a fo comfort filling defect within an M2 segment of the left MCA, although the more distal vessels do opacify with contrast. The vertebrobasilar system is patent. The visualized cerebellar arteries are unrema rkable. No intracranial aneurysm or vascular malformation is seen. IMPRESSION: 1. Focal filling defect within an M2 segment of the left MCA, although the more distal vessels do op acify with contrast. Critical Results were called to Dr. Toledo at 09:31 p.m. on 02/11/2017. RPTAT: HTAR .Arie Rios MD, MD Date Time Electronically viewed and signed by .Arie Rios MD, on 02/11/2017 21:35 .R/
[2017-02-11] MEDS ORDERED: METOCLOPRAMIDE 10 MG INJ IV ONE (22:00)
[2017-02-12] VITALS (23 sets, daily range): BP systolic 87–135; BP diastolic 65–88; PULSE 63–81; RESP 16–25
[2017-02-12] MEDS ORDERED: POTASSIUM CHLORIDE 20 MEQ in SOD CHLORIDE 0.9% 100 ML IVPB ONE (01:00)
[2017-02-12] MEDS ORDERED: SOD CHLORIDE 0.9% 1,000 ML IV SCH (01:24)
[2017-02-12] MEDS ORDERED: ACETAMINOPHEN 325 MG TAB PO PRN (01:30)
[2017-02-12] MEDS ORDERED: ONDANSETRON 4 MG INJ IV PRN (01:30)
[2017-02-12] MEDS ORDERED: LABETALOL HCL 20MG INJ IV PRN (01:30)
[2017-02-12] MEDS ORDERED: ACETAMINOPHEN 650 MG SUPP PR PRN (01:30)
[2017-02-12] MEDS ORDERED: DEXTROSE 5% IV SCH (02:00)
[2017-02-12] MEDS ORDERED: LABETALOL IV SCH (02:00)
[2017-02-12 04:57] LABS: ADD SCAN DIFF NO
[2017-02-12 05:04] LABS: BASOPHILS % 0.2 % (0.0-2.0); HEMATOCRIT 41.7 % (37.0-47.0); HEMOGLOBIN 13.7 g/dl (12.0-16.0); LYMPHOCYTES # 1.1 10^3/ul (0.8-2.9); LYMPHOCYTES % 21.8 % (15.0-51.0); MEAN CORPUSCULAR HEMOGLOBIN 31.1 pg (29.0-33.0); MEAN CORPUSCULAR HGB CONC 32.9 g/dl (32.0-37.0); MEAN CORPUSCULAR VOLUME 94.6 fl (82.0-101.0); MEAN PLATELET VOLUME 11.3 fl (7.4-10.4); MONOCYTE # 0.4 10^3/ul (0.3-0.9); MONOCYTES % 9.1 % (0.0-11.0); NEUTROPHIL # 3.3 10^3/ul (1.6-7.5); NEUTROPHILS % 68.5 % (39.0-77.0); PLATELET COUNT 183 10^3/UL (140-415); RED BLOOD COUNT 4.41 10^6/ul (4.20-5.40); RED CELL DISTRIBUTION WIDTH 12.5 % (11.5-14.5); WHITE BLOOD COUNT 4.8 10^3/ul (4.8-10.8)
[2017-02-12 05:19] LABS: ALBUMIN 3.2 g/dl (3.3-4.9)
[2017-02-12 05:20] LABS: POTASSIUM 3.8 mmol/L (3.5-5.1)
[2017-02-12 05:22] LABS: ALBUMIN/GLOBULIN RATIO 0.72; BILIRUBIN,INDIRECT 0.3 mg/dl (0-1.1); BILIRUBIN,TOTAL 0.3 mg/dl (0.2-1.3); CREATININE 0.7 mg/dl (0.44-1.00); TOTAL PROTEIN 7.6 g/dl (6.1-8.1)
[2017-02-12 05:23] LABS: CALCIUM 10.1 mg/dl (8.4-10.2); CHOL/HDL RATIO 4.6 RATIO
[2017-02-12] MEDS: PANTOPRAZOLE 40 MG INJ IV SCH (05:51)
[2017-02-12 06:42] LABS: ADD UMIC YES; URINE BILIRUBIN (Dip) NEGATIVE (NEGATIVE); URINE BLOOD (Dip) TRACE (NEGATIVE); URINE COLOR LT. YELLOW (YELLOW); URINE GLUCOSE (Dip) NEGATIVE (NEGATIVE); URINE KETONES (Dip) NEGATIVE (NEGATIVE); URINE LEUKOCYTE ESTERASE (Dip) 1+ (NEGATIVE); URINE NITRITE (Dip) NEGATIVE (NEGATIVE); URINE TOTAL PROTEIN (Dip) TRACE (NEGATIVE); URINE UROBILINOGEN (Dip) 4.0 E.U./dL (0.1-1.0)
[2017-02-12 06:58] LABS: BARBITURATES NEGATIVE (NEGATIVE); BENZODIAZEPINES NEGATIVE (NEGATIVE); CANNABINOIDS NEGATIVE (NEGATIVE); COCAINE NEGATIVE (NEGATIVE); OPIATES NEGATIVE (NEGATIVE)
[2017-02-12 06:59] LABS: URINE RBCS 0-2 /HPF (0)
--- NOTE | 2017-02-12 07:16 | HP ---
Date/Time of Note Date/Time of Note DATE: 02/12/17 TIME: 06:43 Assessment/Plan VTE Prophylaxis VTE Prophylaxis Intervention: contraindicated (Status post TPA), SCD's Lines/Catheters IV [facility]from [facility] Peripheral IV Assessment/Plan Chief Complaint/Hosp Course This is a 56-year-old female being admitted to the ICU floor for: #1 acute CVA: Patient is status post TPA. Please see imaging studies for CT of the head findings. She appears to have shown significant improvement of her speech as well as her right upper and lower extremities. Her neurological exam does show some mild confusion with her speech however she is not slurring. Her bilateral upper and lower extremities appear to be 5 out of 5 in her strength bilaterally. Will initiate the post TPA protocol. Will order repeat CT of the head before the 24 hour timeframe. Will also order bilateral carotid Dopplers. She had an echocardiogram done last week on 02/04/17 which did show an ejection fraction of 35% however there was no signs of any septal defects. Will defer repeat echo to cardiology if necessary. Will defer further imaging studies to neurology as they have been consulted. Consult PT and OT and swallow eval ordered. #2 recent ME: Patient is status post stent placement. She did show ST elevations on her EKG. However it was not known whether these were old versus new. She denied any chest pain. The ER did consult cardiology Dr. 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 Will trend troponins. Continue home medications once dysphagia swallow eval is complete. Cardiology is aware and they will follow. Patient does report that she was not able to take some of her medications that she was discharged on she was not able to afford them. She does not know however which one she was taking in which when she was not. #3 Systolic heart failure: Patient is currently compensated. Recent echo showed ejection fraction of 35%. Will continue medications once patient passes swallow eval. Defer further management to cardiology. #4 DVT and GI prophylaxis: Protonix IV, SCDs. Chemical prophylaxis contraindicated at this time secondary to patient receiving TPA. Problems: HPI/ROS Admit Date/Time Admit Date/Time February 12, 2017 at 01:36 Hx of Present Illness Chief complaint: Right-sided weakness, slurred speech Patient is a 56-year-old female who presents with sudden onset, constant, moderate to severe right facial droop, right arm weakness and difficulty speaking starting at 7:30 PM. Patient was with her son, who called 911 immediately. There was no loss of consciousness, no seizure activity. The patient was hospitalized 1 week ago for stent placement for an acute anterior ST elevation ME. Patient denies having chest pain, shortness of breath, headache, dizziness today. No vomiting, no fall or trauma. At the present time patient is status post TPA. She now states that her speech has improved significantly. She also states that her right-sided arm weakness is also improved significantly as well as her right leg. Allergies: NKDA Medications: See MAR, of note patient states that she was not able to afford some of her medications that she was prescribed upon her discharge recently from the hospital. She does not know which one she is taking at this time. ROS Const: Negative for fever, chills, weight gain or weight loss, fatigue, or diaphoresis Eyes : No pain discharge or redness or change in visual acuity ENT: No pain, sore throat, congestion, congestion, dysphagia or discharge Respiratory: No shortness of breath, cough, sputum, wheezing, or pleuritic pain Cardiovascular: No chest pain, palpitation, PND, or edema GI : no change in appetite, abdominal pain, nausea, vomiting, diarrhea, constipation, or change in the color his stool Genitourinary: No dysuria, hematuria, flank pain , discharge or CVA tenderness Musculoskeletal: No joint pain, back pain, neck pain, restricted range of motion in neck or joints Skin: No rash, bruising or hives Neuro: As per HPI Endocrine: No polyuria, polydipsia, temperature intolerance Psych: No hallucination, depression, anxiety or suicidal ideation PMH/Family/Social Past Medical History STEMI, CAD, hypertension Past Surgical History Stent placement 1 week ago Family History Significant Family History: hypertension (Mom, dad) Social History Alcohol Use: none (Half pack per day 16 years) Smoking Status: Current every day smoker Exam/Review of Systems Vital Signs Vitals Vital Signs Date Time Temp Pulse Resp B/P Pulse Ox O2 Delivery O2 Flow Rate FiO2 02/12/17 06:00 70 19 114/80 100 Nasal Cannula 2.0 02/12/17 03:30 99.3 02/11/17 20:20 30 Intake and Output 5/02/11/17 02/12/17 15:00 23:00 07:00 Intake Total 209.25 ml Output Total 320 ml Balance -110.75 ml Exam Exam General: Patient is well-developed well-nourished The patient is alert oriented -3 lying comfortably in bed. HEENT: Atraumatic, normocephalic. The pupils are equal, round and reactive. Extraocular motor are intact Neck: Supple with full range of motion. No rigidity or meningismus Chest: Nontender Lungs: Clear to auscultation bilaterally no crackles rales or wheezing Heart: Normal S1-S2, Regular rhythm and rate. No murmur. Abdomen: Soft , nontender, nondistended , bowel sounds are present. No guarding no rebound tenderness , No masses or organomegaly. No costovertebral temporal angle mass Extremities: Normal to inspection, no edema no cyanosis Neurologic: Patient was seen status post TPA. At the current time her speech is relatively clear and her words are for the most part coherent. Her strength appears to be 5 out of 5 in bilateral upper and lower extremities. Additional Comments PROCEDURE: CT head, without contrast. CLINICAL INDICATION: Possible Stroke TECHNIQUE: Noncontrast CT examination of the head, with axial, sagittal and coronal reformatted images. Automated dose exposure control was employed. CTDI: 43.11 and DLP: 823.61. COMPARISON: None. FINDINGS: No acute hemorrhage. Subarachnoid spaces are substantially preserved and symmetric. Ventricles are unremarkable. No mass effect. Mccoy-white matter distinction is preserved without evident decreased attenuation to suggest acute or recent infarct. Sinuses and osseous structures are unremarkable. IMPRESSION: No acute process in the head. These findings and impression were discussed with Dr. Toledo of the [facility]– [place] department at the conclusion of this examination by the undersigned interpreting radiologist. PROCEDURE: XR Chest. CLINICAL INDICATION: Shortness of breath TECHNIQUE: Single frontal chest x-ray. COMPARISON: 02/04/2017 FINDINGS: The lungs are clear. No focal opacification is seen. No pneumothorax or pleural effusion is seen. The heart size is enlarged. Otherwise, the cardiomediastinal silhouette is unremarkable. Moderate to severe left shoulder degenerative changes are noted. IMPRESSION: 1. No evidence of acute cardiopulmonary disease. 2. Cardiomegaly. 3. Moderate to severe left shoulder degenerative changes. RPTAT: HRAA .Juan Borrego MD, MD Date Time Electronically viewed and signed by .Juan Borrego MD, MD on 02/11/2017 20:35 PROCEDURE: CTA head. CLINICAL INDICATION: Focal neurologic deficit. TECHNIQUE: Direct spiral 0.63 mm axial sections were obtained through the intracranial vasculature with the use of 95 cc of Omnipaque 350 nonionic intravenous contrast material. Axial MIP, coronal, and sagittal reformations were obtained. The images were reviewed on a PACS workstation. CTDIvol: 66.31, 33.37 mGy. DLP: 698.76 mGy-cm. COMPARISON: Brain CT performed earlier on the same date. FINDINGS: There is mild calcified atherosclerotic plaque along the bilateral cavernous and supraclinoid ICAs, without stenosis. The bilateral ACAs, right MCA, and bilateral casting molder are widely patent. There is a focal filling defect within an M2 segment of the left MCA, although the more distal vessels do opacify with contrast. The vertebrobasilar system is patent. The visualized cerebellar arteries are unremarkable. No intracranial aneurysm or vascular malformation is seen. IMPRESSION: . Critical Results were called to Dr. Toledo at 09:31 p.m. on 02/11/2017. RPTAT: HTAR .Arie Rios MD, MD Date Time Electronically viewed and signed by .Arie Rios MD, on 02/11/2017 21:35 Labs Result Diagram: 02/12/17 0440 02/12/17 0440 Medications Medications Current Medications Sodium Chloride (NS) 1,000 ml @ 40 mls/hr Q24H IV Last administered on t 02:48; Admin Dose 40 MLS/HR; Start 02/12/17 at 01:24 Ondansetron HCl (Zofran Inj) 4 mg Q6H PRN IV NAUSEA AND/OR VOMITING; Start at 01:30 Acetaminophen (Tylenol Supp) 650 mg Q4H PRN [place] PAIN LEVEL 1-3 OR FEVER; Start 02/12/17 at 01:30 Pantoprazole (Protonix Iv) 40 mg DAILY@06 IV Last administered on 02/12/17t 05: 51; Admin Dose 40 MG; Start 02/12/17 at 06:00 Labetalol HCl (Labetalol) 10 mg Q10M PRN IV ELEVATED BLOOD PRESSURE; Start at 01:30 Acetaminophen (Tylenol Tab) 650 mg Q4H PRN PO Temp greater than 99.6F; Start at 01:30 Docusate Sodium (Colace) 100 mg BID PO ; Start 02/12/17 at 09:00 ERASTO LUIS February 12, 2017 06:56
--- NOTE | 2017-02-12 09:09 | RADRPT ---
PROCEDURE: US Carotids. CLINICAL INDICATION: bruit , cva TECHNIQUE: Multiple sonographic of the carotid bifurcation region and vertebral arteries were obta ined utilizing kee scale, duplex and color-flow imaging. The images were reviewed on a PACS worksta tion. COMPARISON: No prior studies are available for comparison. FINDINGS: Evaluation of the right carotid bifurcation region reveals mild calcific atherosclerotic disease. . There is a 33% stenosis in the right carotid bulb region. Evaluation of the left carotid bifurcation region reveals mild soft plaque.. There is a 23% stenosi s in the left carotid bulb region. There is antegrade flow within the vertebral arteries bilaterally. RIGHT CAROTID MEASUREMENTS: Common Carotid Jxjepp10.5 (cm/sec) Internal Carotid Artery - apmovbju95.3 (cm/sec) Internal Carotid Artery - mid64.8 (cm/sec) Internal Carotid Artery - .8 (cm/sec) Internal Carotid/Common Carotid0.98 LEFT CAROTID MEASUREMENTS: Common Carotid Fuyvpi98.5 (cm/sec) Internal Carotid Artery - .8 (cm/sec) Internal Carotid Artery - mid80 (cm/sec) Internal Carotid Artery - ljwyfa27 (cm/sec) Internal Carotid/Common Carotid0.86 RPTAT: AA IMPRESSION: No evidence for hemodynamically significant stenosis in the bilateral internal carotid arteries - va lidated velocity measurements with angiographic measurements, velocity criteria are extrapolated fro m diameter data as defined by the Society of Radiologists in Ultrasound Consensus Conference Radiolo gy 2003; 229;340-346. This study does indirectly reference the measurement of the distal ICA diamet er as the denominator for stenosis measurement. Normal antegrade flow in the vertebral arteries bilaterally. .Ace Schmid MD, Date Time Electronically viewed and signed by .Ace Schmid MD, MD on 02/12/2017 09:09 .S/
--- NOTE | 2017-02-12 09:26 | CONS ---
Date/Time of Note Date/Time of Note DATE: 02/12/17 TIME: 09:14 Assessment/Plan Assessment/Plan Chief Complaint/Hosp Course 58 yo with recent STEMI of anterior wall, now presenting with an acute left MCA cva. Source of stroke may be embolic from left ventricle. Clinically she is significantly improved after receiving TPA Problems: Additional Assessment/Plan L MCA cva s/p tpa STEMI 1 week ago of anterior wall ischemic cardiomyopathy ef 35% tobacco abuse hypertension noncompliance with meds due to unable to afford Recc: Restart asa and clopidogrel, which fortunately she has been taking Resume atorvastatin, carvedilol, valsartan Case management eval to help her to afford medications Tobacco cessation PT eval Echo to assess for LV thrombus Consultation Date/Type/Reason Admit Date/Time February 12, 2017 at 01:36 Date of Consultation: February 12, 2017 Type of Consultation: cardiology Reason for Consultation recent NH, presenting with stroke Referring Provider: ERASTO LUIS Hx of Present Illness 56 yo who suffered an anterior wall stemi last week, had emergent pci and stent to the LAD. Echo demonstrated reduced LVEF. Patient discharged on a regimen of asa, clopidogrel, atorvastatin, carvedilol, and valsartan. Patient has been taking asa and clopidogrel, but could not afford the other medications so was not taking them. Constitutional: improved, no complaints Eyes: no complaints ENT: no complaints Respiratory: no complaints Cardiovascular: no complaints Gastrointestinal: no complaints Genitourinary: no complaints Musculoskeletal: no complaints Skin: no complaints Neurologic: no complaints Endocrine: no complaints Psychological: nl mood/affect, no complaints Past Medical History Medical History: coronary artery disease, hypertension Past Surgical History Past Surgical Hx: angioplasty Family History Significant Family History: no pertinent family hx Social History Alcohol Use: none (Half pack per day 16 years) Smoking Status: Current some day smoker Exam/Review of Systems Vital Signs Vitals Vital Signs Date Time Temp Pulse Resp B/P Pulse Ox O2 Delivery O2 Flow Rate FiO2 02/12/17 08:00 99.0 73 21 110/88 100 Nasal Cannula 2.0 02/11/17 20:20 30 Intake and Output 02/11/17 02/11/17 02/12/17 15:00 23:00 07:00 Intake Total 209.25 ml Output Total 320 ml Balance -110.75 ml Exam Constitutional: alert, oriented, well developed Psych: nl mood/affect, no complaints Head: atraumatic, normocephalic Eyes: EOMI, PERRL, nl conjunctiva, nl lids, nl sclera ENMT: nl external ears & nose, nl lips & teeth, nl nasal mucosa & septum Neck: No bruits, No jvd Respiratory: clear to auscultation, normal air movement Cardiovascular: regular rate and rhythm, No murmurs/extra sounds Gastrointestinal: nl liver, spleen, non-tender, soft Musculoskeletal: nl extremities to inspection, nl gait and stance Extremities: No edema Neurological: CAR SUPPLIER II-XII intact, nl mental status, nl speech, nl strength Skin: nl turgor, No rash or lesions Lymph: nl lymph nodes Results Result Diagram: 02/12/1743902/12/17439 Results 24 hrs Laboratory Tests Test 02/11/17 20:10 02/12/17 04:40 02/12/17 05:25 White Blood Count 4.0 #L 4.8 Red Blood Count 4.38 4.41 Hemoglobin 14.0 13.7 Hematocrit 41.5 41.7 Mean Corpuscular Volume 94.7 94.6 Mean Corpuscular Hemoglobin 32.0 31.1 Mean Corpuscular Hemoglobin Concent 33.7 32.9 Red Cell Distribution Width 12.5 12.5 Platelet Count 194 # 183 Mean Platelet Volume 11.1 H 11.3 H Neutrophils % 50.5 68.5 Lymphocytes % 35.8 21.8 Monocytes % 12.1 H 9.1 Eosinophils % 0.8 0.0 Basophils % 0.5 0.2 Nucleated Red Blood Cells % 0.0 0.0 Neutrophils # 2.0 3.3 Lymphocytes # 1.4 1.1 Monocytes # 0.5 0.4 Eosinophils # 0.0 0.0 Basophils # 0.0 0.0 Nucleated Red Blood Cells # 0.0 0.0 Prothrombin Time 14.0 Prothrombin Time Ratio 1.1 INR International Normalized Ratio 1.08 Activated Partial Thromboplast Time 26.9 Sodium Level 140 142 Potassium Level 3.3 L 3.8 Chloride Level 104 106 Carbon Dioxide Level 27 27 Anion Gap 12 13 Blood Urea Nitrogen 6 L 7 Creatinine 0.73 0.70 Glucose Level 113 120 Hemoglobin A1c 5.6 Calcium Level 9.9 10.1 Total Bilirubin 0.2 0.3 Direct Bilirubin 0.00 0.00 Indirect Bilirubin 0.2 0.3 Aspartate Amino Transf (AST/SGOT) 24 24 Alanine Aminotransferase (ALT/SGPT) 23 22 Alkaline Phosphatase 103 107 Creatine Kinase 68 Creatine Kinase Index 1.6 Creatinine Kinase MB (Mass) 1.12 Troponin I 2.630 *H 3.490 *H Total Protein 8.0 7.6 Albumin 3.5 3.2 L Globulin 4.50 H 4.40 H Albumin/Globulin Ratio 0.77 0.72 Triglycerides Level 97 Cholesterol Level 122 LDL Cholesterol, Calculated 77 HDL Cholesterol 26 L Cholesterol/HDL Ratio 4.6 Urine Color LT. YELLOW Urine Clarity CLEAR Urine pH 5.5 Urine Specific [place] 1.015 Urine Ketones NEGATIVE Urine Nitrite NEGATIVE Urine Bilirubin NEGATIVE Urine Urobilinogen 4.0 E.U./dL H Urine Leukocyte Esterase 1+ H Urine Microscopic RBC 0-2 Urine Microscopic WBC 2-5 Urine Epithelial Cells RARE Urine Hemoglobin TRACE Urine Glucose NEGATIVE Urine Total Protein TRACE Urine Opiates Screen NEGATIVE Urine Barbiturates NEGATIVE Urine Amphetamines Screen NEGATIVE Urine Benzodiazepines Screen NEGATIVE Urine Cocaine Screen NEGATIVE Urine Cannabinoids NEGATIVE Medications Medications Current Medications Sodium Chloride (NS) 1,000 ml @ 40 mls/hr Q24H IV Last administered on 02:48; Admin Dose 40 MLS/HR; Start 02/12/17 at 01:24 Ondansetron HCl (Zofran Inj) 4 mg Q6H PRN IV NAUSEA AND/OR VOMITING; Start at 01:30 Acetaminophen (Tylenol Supp) 650 mg Q4H PRN [place] PAIN LEVEL 1-3 OR FEVER; Start 02/12/17 at 01:30 Pantoprazole (Protonix Iv) 40 mg DAILY@06 IV Last administered on 02/12/17 05: 51; Admin Dose 40 MG; Start 02/12/17 at 06:00 Labetalol HCl (Labetalol) 10 mg Q10M PRN IV ELEVATED BLOOD PRESSURE; Start at 01:30 Acetaminophen (Tylenol Tab) 650 mg Q4H PRN PO Temp greater than 99.6F; Start at 01:30 Docusate Sodium (Colace) 100 mg BID PO ; Start 02/12/17 at 09:00 NURIS EDOUARD February 12, 2017 09:24
[2017-02-12] MEDS ORDERED: CLOPIDOGREL 75 MG TAB PO SCH (09:30)
[2017-02-12] MEDS ORDERED: ASPIRIN 81 MG TAB PO SCH (09:30)
[2017-02-12] MEDS: VALSARTAN 80 MG TAB PO SCH (09:30)
[2017-02-12] MEDS: DOCUSATE SODIUM 100 MG CAP PO SCH ×2 (09:40→21:21)
[2017-02-12] MEDS ORDERED: WARFARIN 5 MG TAB PO SCH (11:00)
[2017-02-12] MEDS ORDERED: [UNRECOGNIZED DRUG - REMARK] XX SCH (11:00)
--- NOTE | 2017-02-12 11:22 | EN ---
Date/Time of Note Date/Time of Note DATE: 02/12/17 TIME: 11:20 Event Note Medicine Medicine Event Note Patient awake alert and oriented comfortable this morning following TPA Right arm weakness vital signs per chart GENERAL: Well-nourished well-developed lady VITAL SIGNS: per chart NECK: Supple. No JVD or lymphadenopathy. CARDIAC EXAM: S1, S2. No added sounds or murmurs. CHEST: clear bilaterally, No added sounds, rales or wheezes ABDOMEN: Soft, nontender. No guarding or rebound. EXTREMITIES: No cyanosis, clubbing or edema. NEUROLOGIC: Generalized weakness. Right arm weakness Assessment 1. Acute CVA status post TPA 2. History of coronary artery disease with decreased ejection fraction and recent stent placement Plan 1. Cardiology recommendations 2. Neurology evaluation and recommendations 3. Statin, beta-keisha, aspirin 4. Speech therapy evaluation 5. PT evaluation 6. Acute rehab CHRISTIN Singh MD, [facility] February 12, 2017 11:22
--- NOTE | 2017-02-12 12:26 | CONS ---
Date/Time of Note Date/Time of Note DATE: 02/12/17 TIME: 12:01 Assessment/Plan Assessment/Plan Chief Complaint/Hosp Course 56 year old female with recent anterior wall STEMI requiring LAD stent was on dual antiplatelet therapy with ASA/Plavix admitted for Left MCA stroke s/p IV tPA received on 02/11 20:55. Due to history of recent VA and ischemic cardiomyopathy, embolic etiology is suspected. Recommendations: -Continue ICU level monitoring for atleast up to 24 hours post IV tPA neuro checks per unit protocol maintain SBP<180/105 per IV tPA protocol HOLD ALL ANTIPLATELETS, ANTICOAGULATION AND PHARMACOLOGIC DVT PPX UP TO 24 HOURS POST IV tPA -repeat Head CT 21:00 tonight to evaluate for potential hemorrhagic conversion -MRI Brain w/o contrast to evaluate extent of infarction, if anticoagulation is recommended by cardiology will need to review the imaging to determine if safe based on size of stroke -ECHO with bubble study with definity contrast to assess for potential thrombus if negative may consider MONICA -Fasting Lipid Panel, HBA1C -continue tele monitoring for afib -urine toxicology screen -speech reevaluation for diet upgrade and speech therapy -continue SCD for now for DVT ppx -will continue to follow, please contact me for any questions/concerns or any decline in her condition Problems: Consultation Date/Type/Reason Admit Date/Time February 12, 2017 at 01:36 Date of Consultation: February 12, 2017 Type of Consultation: Neurology Reason for Consultation Left MCA CVA Referring Provider: ERASTO LUIS Hx of Present Illness 58 year old right handed female, active smoker, history of hypertension, non-compliance with medications, ischemic cardiomyopathy recent EF : 35% admitted one week prior for anterior wall STEMI requiring stent to Left LAD now presenting with aphasia and right sided weakness. Her symptoms began at 7:30 on 02/11, brought to the ER urgently within window for IV tPA. She was evaluated by tele neurologist who discussed risks and benefits, recent VA is a relative contraindication for administration of IV tPA, patient's son provided consent and she was given bolus at 20:55, she reportedly had lower gum bleeding which has now subsided and drip was stopped at 21:56 per nursing documentation. On admission EKG changes with ST changes noted by cardiology, without chest pain , program technician was notified and no further intervention taken as patient had just received IV tPA and was asymptomatic, unclear if changes are from prior admission vs. new. Her symptoms significantly improved post IV tPA, strength now back to baseline with improvement in dysarthria. She reports some mild residual difficult with speech, delays and word finding difficulty overall improved. CTA showed Left M2 superior division filling defect. She reports compliance with aspirin and plavix since recent discharge, had not been taking some of her mother medications due to cost issues. Etiology of stroke suspected embolus due to low EF, pending ECHO to further evaluate for potential LV thrombus. mild expressive aphasia Constitutional: improved, no complaints Eyes: no complaints ENT: no complaints Respiratory: no complaints Cardiovascular: no complaints Gastrointestinal: no complaints Genitourinary: no complaints Musculoskeletal: no complaints Skin: no complaints Neurologic: no complaints Endocrine: no complaints Psychological: nl mood/affect, no complaints Past Medical History Medical History: coronary artery disease, hypertension Past Surgical History Past Surgical Hx: angioplasty Social History Alcohol Use: none (Half pack per day 16 years) Smoking Status: Current some day smoker Exam/Review of Systems Vital Signs Vitals Vital Signs Date Time Temp Pulse Resp B/P Pulse Ox O2 Delivery O2 Flow Rate FiO2 02/12/17 08:00 99.0 73 21 110/88 100 Nasal Cannula 2.0 02/11/17 20:20 30 Intake and Output 02/11/17 02/11/17 02/12/17 15:00 23:00 07:00 Intake Total 209.25 ml Output Total 320 ml Balance -110.75 ml Exam awake and alert appears stated age NAD mild delay in speech and some word finding difficulty she can name simple objects, thumb, eye brow, pen can repeat phrases with mild delay able to provide history regarding details on prior hospital admission with delay in speech CN: MINERVA, VFF EOMI no nystagmus mild right NLF flattening sensation intact palate upgoing uvula midline scm/trap intact tongue midline no bleeding noted in mouth Motor: no drift in arms or legs full strength Sensory: intact throughout Reflexes 1+ throughout toes withdraw bilaterally Coordination: no FTN ataxia gait not tested Results Result Diagram: 02/12/1743902/12/17439 Results 24 hrs Laboratory Tests Test 02/11/17 20:10 02/12/17 04:40 02/12/17 05:25 White Blood Count 4.0 #L 4.8 Red Blood Count 4.38 4.41 Hemoglobin 14.0 13.7 Hematocrit 41.5 41.7 Mean Corpuscular Volume 94.7 94.6 Mean Corpuscular Hemoglobin 32.0 31.1 Mean Corpuscular Hemoglobin Concent 33.7 32.9 Red Cell Distribution Width 12.5 12.5 Platelet Count 194 # 183 Mean Platelet Volume 11.1 H 11.3 H Neutrophils % 50.5 68.5 Lymphocytes % 35.8 21.8 Monocytes % 12.1 H 9.1 Eosinophils % 0.8 0.0 Basophils % 0.5 0.2 Nucleated Red Blood Cells % 0.0 0.0 Neutrophils # 2.0 3.3 Lymphocytes # 1.4 1.1 Monocytes # 0.5 0.4 Eosinophils # 0.0 0.0 Basophils # 0.0 0.0 Nucleated Red Blood Cells # 0.0 0.0 Prothrombin Time 14.0 Prothrombin Time Ratio 1.1 INR International Normalized Ratio 1.08 Activated Partial Thromboplast Time 26.9 Sodium Level 140 142 Potassium Level 3.3 L 3.8 Chloride Level 104 106 Carbon Dioxide Level 27 27 Anion Gap 12 13 Blood Urea Nitrogen 6 L 7 Creatinine 0.73 0.70 Glucose Level 113 120 Hemoglobin A1c 5.6 Calcium Level 9.9 10.1 Total Bilirubin 0.2 0.3 Direct Bilirubin 0.00 0.00 Indirect Bilirubin 0.2 0.3 Aspartate Amino Transf (AST/SGOT) 24 24 Alanine Aminotransferase (ALT/SGPT) 23 22 Alkaline Phosphatase 103 107 Creatine Kinase 68 Creatine Kinase Index 1.6 Creatinine Kinase MB (Mass) 1.12 Troponin I 2.630 *H 3.490 *H Total Protein 8.0 7.6 Albumin 3.5 3.2 L Globulin 4.50 H 4.40 H Albumin/Globulin Ratio 0.77 0.72 Triglycerides Level 97 Cholesterol Level 122 LDL Cholesterol, Calculated 77 HDL Cholesterol 26 L Cholesterol/HDL Ratio 4.6 Urine Color LT. YELLOW Urine Clarity CLEAR Urine pH 5.5 Urine Specific [place] 1.015 Urine Ketones NEGATIVE Urine Nitrite NEGATIVE Urine Bilirubin NEGATIVE Urine Urobilinogen 4.0 E.U./dL H Urine Leukocyte Esterase 1+ H Urine Microscopic RBC 0-2 Urine Microscopic WBC 2-5 Urine Epithelial Cells RARE Urine Hemoglobin TRACE Urine Glucose NEGATIVE Urine Total Protein TRACE Urine Opiates Screen NEGATIVE Urine Barbiturates NEGATIVE Urine Amphetamines Screen NEGATIVE Urine Benzodiazepines Screen NEGATIVE Urine Cocaine Screen NEGATIVE Urine Cannabinoids NEGATIVE Medications Medications Current Medications Sodium Chloride (NS) 1,000 ml @ 40 mls/hr Q24H IV Last administered on 02:48; Admin Dose 40 MLS/HR; Start 02/12/17 at 01:24 Ondansetron HCl (Zofran Inj) 4 mg Q6H PRN IV NAUSEA AND/OR VOMITING; Start at 01:30 Acetaminophen (Tylenol Supp) 650 mg Q4H PRN [place] PAIN LEVEL 1-3 OR FEVER; Start 02/12/17 at 01:30 Pantoprazole (Protonix Iv) 40 mg DAILY@06 IV Last administered on 02/12/17 05: 51; Admin Dose 40 MG; Start 02/12/17 at 06:00 Labetalol HCl (Labetalol) 10 mg Q10M PRN IV ELEVATED BLOOD PRESSURE; Start at 01:30 Acetaminophen (Tylenol Tab) 650 mg Q4H PRN PO Temp greater than 99.6F; Start at 01:30 Docusate Sodium (Colace) 100 mg BID PO Last administered on 02/12/17 09:40; Admin Dose 100 MG; Start 02/12/17 at 09:00 Atorvastatin Calcium (Lipitor) 80 mg HS PO ; Start 02/12/17 at 21:00 Carvedilol (Coreg) 6.25 mg BID PO ; Start 02/12/17 at 09:30 Valsartan (Diovan) 80 mg DAILY PO ; Start 02/12/17 at 09:30 STAS COLLINS MD February 12, 2017 12:11
--- NOTE | 2017-02-12 18:32 | RADRPT ---
PROCEDURE: MR Brain without contrast. CLINICAL INDICATION: 56-year-old male with left MCA stroke. TECHNIQUE: An MRI of the brain was performed without contrast utilizing the following sequences: Sagittal T1 weighted, sagittal FLAIR, axial T1, axial FLAIR, axial T2 weighted, axial diffusion weig hted, axial ADC mapping. Images were reviewed on a PACS workstation. COMPARISON: Code stroke head CT 02/11/2017, CT angio 02/11/2017 FINDINGS: Diffusion weighted sequences demonstrate patchy cortical diffusion restriction involving the left po sterior temporal and parietal lobes (ACT diffusion weighted sequences image 14-19). There is also d iffusion restriction involving the posterior insular cortex as well as focal area of diffusion restr iction in the left occipital lobe. No evidence of superimposed hemorrhage is seen. There is no int racranial hemorrhage, extra-axial fluid collection, mass lesion, midline shift or hydrocephalous. T here is mild prominence of the cerebral sulci, lateral and third ventricles. The basal cisterns are patent. There is cortical swelling involving the left frontal / parietal lobes in the region of the infarct. There are mild periventricular and subcortical white matter lesions likely related to chr onic microangiopathic changes. Normal flow voids are visible the proximal intracranial arteries and dural sinuses, indicating patency. The midline structures are intact. The paranasal sinuses, mastoid air cells and middle ear cavities are normally aerated. The orbits, calvarium and extracranial soft tissues are normal in appearance. The cerebellopontine angles are no rmal. No evidence of internal acoustic canal or cerebellopontine angle mass. IMPRESSION: 1. Acute/recent left posterior frontal / parietal lobe infarct. 2. Small areas of acute/recent infarct involving the posterior left insular cortex as well as the l eft occipital lobe. 3. No intracranial hemorrhage, mass lesion or hydrocephalous. The above findings were discussed with Patient's Nurse Taylor by telephone on 02/12/2017 6:29:28 PM. RPTAT: HGAS .Liban Rizvi MD, Date Time Electronically viewed and signed by .Liban Rizvi MD, on 02/12/2017 18:31 .S/
--- NOTE | 2017-02-12 19:15 | RADRPT ---
Echocardiogram Report Patient Name: ARYA HINSON Gender: Female Date: 1960 Study Date: 12-Feb-2017 [place] Operator: Layton Fernández RDCS Location: 119 Ref. Physician: IMELDA OSBORN Quality: Good Procedures: Transthoracic echocardiogram examination. Indications: r/o Thrombus. Findings Left Ventricle: The left ventricular ejection fraction is visually estimated at 45 %. Definite thrombus seen. IVC: Normal inferior vena cava appearance. Conclusions Moderately reduced left ventricular systolic function with akinesis in the distribution of the LAD. Mobile thrombus seen at the apex. Electronically Signed By: Imelda Osborn 12-Feb-2017 19:15:06 -0700 Patient Name: ARYA HINSON Study Date: 12-Feb-[id number]
--- NOTE | 2017-02-12 19:55 | EN ---
Date/Time of Note Date/Time of Note DATE: 02/12/17 TIME: 19:48 Event Note Medicine Medicine Event Note Event Note ECHO confirms LV thrombus, EF: 45% MRI Brain reviewed from this afternoon shows acute left insular cortex, left temporal and left parietal infarcts as well as small left occipital infarct with mild swelling. no hemorrhage seen She is pending a repeat [address] post IV tPA scheduled for [facility]. Discussed case with Dr. Osborn this morning and again after review of imaging this evening, given extremely high risk of stent rethrombosis will plan to reinitiate dual antiplatelet therapy with Aspirin and Plavix. She also requires anticoagulation for LV thrombus for high risk of further cardioembolic events. In light of the acute stroke with some mild edema, would prefer to be more cautious and recommend starting a heparin drip with goal pTT 50-60. No bolus, and continue to monitor neurologic status for atleast 24 hours on Heparin drip before transitioning to Coumadin. She should continue to have frequent neuro checks and continue ICU level care at this time, any change in her neurologic status should prompt an immediate CTH without contrast. Will continue to follow. STAS COLLINS MD February 12, 2017 19:55
--- NOTE | 2017-02-12 20:37 | RADRPT ---
Vent Rate: 71 bpm RR Interval: [address] Interval: 134 msec QRS Duration: 82 msec QT Interval: 408 msec QTC Interval: 443 msec P-R-T [place]: 70 - -58 - 102 degrees Normal sinus rhythm Biatrial enlargement Pulmonary disease pattern Left anterior fascicular block Left ventricular hypertrophy with repolarization abnormality Cannot rule out Septal infarct , age undetermined Abnormal ECG Electronically Signed By: Ismael Leigh [id number]
[2017-02-12] MEDS: ATORVASTATIN 80 MG TAB PO SCH (21:22)
--- NOTE | 2017-02-12 22:42 | RADRPT ---
PROCEDURE: CT Head without. CLINICAL INDICATION: Stroke status post t-PA. TECHNIQUE: The study was performed utilizing a multi-slice, multidetector CT scanner. Direct spira l 1 mm axial sections were obtained through the head without the use of intravenous contrast materia l. 1 or more of the following dose reduction techniques were utilized: Automated exposure control, adjustment of the mA and/or kV according to patient's size, iterative reconstruction technique. Co galina and sagittal reformations were obtained. The images were reviewed on a PACS workstation. RADIATION DOSE: CTDIvol: 40.2 mGyDLP: 768.0 mGy-cm COMPARISON: MRI brain 02/12/2017 CT head 02/11/2017. FINDINGS: There is no intracranial hemorrhage, extra-axial fluid collection, mass lesion, midline shift or hyd rocephalus. There is stable appearance of remote left thalamic infarct with well-circumscribed ence phalomalacia. There is mild prominence of the cerebral sulci, lateral and third ventricles. The wh ite matter is unremarkable. The kee-white matter differentiation is preserved. The basal cisterns are patent. The midline structures are intact. The orbits, calvarium and extracranial soft tissue s are normal in appearance. The visualized paranasal sinuses, mastoid air cells and middle ear cavit ies are normally aerated. IMPRESSION: 1. No acute intracranial abnormality. No intracranial hemorrhage, extra-axial fluid collection, ma ss lesion or hydrocephalous. 2. Stable mild peripheral and central cerebral volume loss. RPTAT: HGAS .Liban Rizvi MD, Date Time Electronically viewed and signed by .Liban Rizvi MD, MD on 02/12/2017 22:41 .S/
[2017-02-13] VITALS (33 sets, daily range): BP systolic 80–134; BP diastolic 56–106; PULSE 57–119; RESP 12–28; Ht 167.6 cm; Wt 77.3 kg
[2017-02-13 06:04] LABS: ADD SCAN DIFF NO
[2017-02-13 06:09] LABS: EOSINOPHILS % 0.3 % (0.0-7.0); HEMATOCRIT 38.5 % (37.0-47.0); HEMOGLOBIN 12.9 g/dl (12.0-16.0); LYMPHOCYTES % 25.6 % (15.0-51.0); MEAN CORPUSCULAR HEMOGLOBIN 31.5 pg (29.0-33.0); MEAN CORPUSCULAR HGB CONC 33.5 g/dl (32.0-37.0); MEAN CORPUSCULAR VOLUME 93.9 fl (82.0-101.0); MEAN PLATELET VOLUME 11.3 fl (7.4-10.4); MONOCYTE # 0.4 10^3/ul (0.3-0.9); MONOCYTES % 9.6 % (0.0-11.0); NEUTROPHIL # 2.4 10^3/ul (1.6-7.5); NEUTROPHILS % 64.2 % (39.0-77.0); PLATELET COUNT 179 10^3/UL (140-415); RED CELL DISTRIBUTION WIDTH 12.4 % (11.5-14.5); WHITE BLOOD COUNT 3.8 10^3/ul (4.8-10.8)
--- NOTE | 2017-02-13 06:27 | PN ---
Date/Time of Note Date/Time of Note DATE: 02/13/17 TIME: 06:23 Assessment/Plan VTE Prophylaxis VTE Prophylaxis Intervention: ambulation Lines/Catheters IV [facility] [place] Assessment/Plan Chief Complaint/Hosp Course 58 yo with recent STEMI of anterior wall, now presenting with an acute left MCA cva, after noncompliance with medications. Source of stroke is embolism from the left ventricle visualized on echo yesterday. Clinically she is significantly improved after receiving TPA Problems: Assessment/Plan Embolic CVA to L MCA, clinically improved after TPA [place] one week ago, with stent to LAD Medication noncompliance -- per nursing pt was only taking aspirin, could not afford other meds (all of which were generic) LV thrombus Hypertension, controlled Recommendations: Case d/w Dr. Vogel, will start heparin drip and then start warfarin Continue asa and clopidogrel for stent patency Carvedilol and valsartan for cardiomyopathy Atorvastatin high dose given recent [place] Case management to aid with meds Warfarin teaching Subjective 24 Hr Interval Summary Free Text/Dictation Patient's daughter yesterday. Patient has been able to get up and walk without difficulty. Of note, echo reviewed yesterday, there is a large LV thrombus measuring 2.5 cm in diameter. LVEF looks like it is improved though wall motion abnormality remains. Exam/Review of Systems Vital Signs Vitals Vital Signs Date Time Temp Pulse Resp B/P Pulse Ox O2 Delivery O2 Flow Rate FiO2 02/13/17 05:00 72 18 106/74 100 Room Air 02/13/17 04:00 98.2 02/12/17 08:00 2.0 02/11/17 20:20 30 Intake and Output 02/12/17 02/12/17 02/13/17 15:00 23:00 07:00 Intake Total 750 ml 500 ml Output Total 950 ml 600 ml 320 ml Balance -200 ml -100 ml -320 ml Exam Constitutional: alert, oriented, well developed Psych: no complaints, other (sad) Head: atraumatic, normocephalic Eyes: EOMI, PERRL, nl conjunctiva, nl lids, nl sclera ENMT: nl external ears & nose, nl lips & teeth, nl nasal mucosa & septum Neck: No bruits, No jvd Respiratory: clear to auscultation, normal air movement Cardiovascular: regular rate and rhythm, No murmurs/extra sounds Gastrointestinal: non-tender, soft Musculoskeletal: nl extremities to inspection Neurological: nl mental status, nl speech, nl strength Skin: nl turgor, No rash or lesions Results Result Diagram: 02/12/1743902/12/17439 Medications Medications Current Medications Ondansetron HCl (Zofran Inj) 4 mg Q6H PRN IV NAUSEA AND/OR VOMITING; Start at 01:30 Acetaminophen (Tylenol Supp) 650 mg Q4H PRN [place] PAIN LEVEL 1-3 OR FEVER; Start 02/12/17 at 01:30 Pantoprazole (Protonix Iv) 40 mg DAILY@06 IV Last administered on 02/12/17 05: 51; Admin Dose 40 MG; Start 02/12/17 at 06:00 Labetalol HCl (Labetalol) 10 mg Q10M PRN IV ELEVATED BLOOD PRESSURE; Start at 01:30 Acetaminophen (Tylenol Tab) 650 mg Q4H PRN PO Temp greater than 99.6F; Start at 01:30 Docusate Sodium (Colace) 100 mg BID PO Last administered on 02/12/17 21:21; Admin Dose 100 MG; Start 02/12/17 at 09:00 Atorvastatin Calcium (Lipitor) 80 mg HS PO Last administered on 02/12/17 21:22 ; Admin Dose 80 MG; Start 02/12/17 at 21:00 Carvedilol (Coreg) 6.25 mg BID PO Last administered on 02/12/17 21:22; Admin Dose 6.25 MG; Start 02/12/17 at 09:30 Valsartan (Diovan) 80 mg DAILY PO ; Start 02/12/17 at 09:30 Aspirin (Aspirin) 81 mg DAILY PO ; Start 02/13/17 at 09:00 Clopidogrel Bisulfate (plaVIX) 75 mg DAILY PO ; Start 02/13/17 at 09:00 NURIS EDOUARD February 13, 2017 06:27
[2017-02-13 06:29] LABS: CREATININE 0.67 mg/dl (0.44-1.00); MAGNESIUM 2.3 mg/dl (1.7-2.5); PHOSPHORUS 3.2 mg/dl (2.5-4.9); POTASSIUM 3.7 mmol/L (3.5-5.1)
[2017-02-13] MEDS: PANTOPRAZOLE 40 MG INJ IV SCH (08:40)
[2017-02-13] MEDS: VALSARTAN 80 MG TAB PO SCH (08:41)
[2017-02-13] MEDS: DOCUSATE SODIUM 100 MG CAP PO SCH ×2 (08:41→20:53)
[2017-02-13] MEDS: ASPIRIN 81 MG TAB PO SCH (08:42)
[2017-02-13] MEDS: CLOPIDOGREL 75 MG TAB PO SCH (08:42)
[2017-02-13 10:24] LABS: INR 1.25; PROTIME 15.8 Sec (12.2-14.2); PT RATIO 1.2
[2017-02-13] MEDS: HEPARIN 25000 UNITS/250 ML 250 ML IV SCH (10:47)
--- NOTE | 2017-02-13 11:51 | PN ---
Date/Time of Note Date/Time of Note DATE: 02/13/17 TIME: 11:48 Assessment/Plan VTE Prophylaxis VTE Prophylaxis Intervention: other Lines/Catheters [facility] Peripheral IV Urinary Cath still in place: No Assessment/Plan Chief Complaint/Hosp Course Assessment and plan: #1 acute CVA: Patient is status post TPA. Neurology has been consulted, continue aspirin, Plavix, heparin at this time Follow-up neurology recommendation #2 recent SC: Patient is status post stent placement. She did show ST elevations on her EKG. cardiology Dr. Osborn has been consulted and patient at this time is not a candidate for cone of the Cath slab puller that she had received TPA. Continue aggressive medical management #3 Systolic heart failure: Patient is currently compensated. Recent echo showed ejection fraction of 35%. Defer further management to cardiology. #4 DVT and GI prophylaxis: Protonix IV, SCDs. Chemical prophylaxis contraindicated at this time secondary to patient receiving TPA. Problems: Subjective 24 Hr Interval Summary Free Text/Dictation Patient denies any chest pain or shortness of breath Denies of any headache or dizziness Denies of having any focal weakness at this time Exam/Review of Systems Vital Signs Vitals Vital Signs Date Time Temp Pulse Resp B/P Pulse Ox O2 Delivery O2 Flow Rate FiO2 02/13/17 11:00 64 17 88/62 97 Room Air 02/13/17 08:00 98.5 02/12/17 08:00 2.0 02/11/17 20:20 30 Intake and Output 02/12/17 02/12/17 02/13/17 15:00 23:00 07:00 Intake Total 750 ml 500 ml Output Total 950 ml 600 ml 320 ml Balance -200 ml -100 ml -320 ml Exam General: The patient is well-developed, Not in acute distress. HEENT: Atraumatic, normocephalic. The pupils are equal and round . Neck: Supple with full range of motion. Chest: Normal expansion of the thorax during inspiration Lungs: Clear to auscultation bilaterally Heart: Normal S1-S2, Regular rhythm and rate. Abdomen: Soft , nontender, nondistended , bowel sounds are present. Extremities: Normal to inspection, no edema no cyanosis Neurologic: Normal mental status,The patient is awake, alert and oriented . Results Result Diagram: 02/13/1751102/13/17 0512 Results 24 hrs Laboratory Tests Test 02/13/17 05:12 02/13/17 09:23 White Blood Count 3.8 #L Red Blood Count 4.10 L Hemoglobin 12.9 Hematocrit 38.5 Mean Corpuscular Volume 93.9 Mean Corpuscular Hemoglobin 31.5 Mean Corpuscular Hemoglobin Concent 33.5 Red Cell Distribution Width 12.4 Platelet Count 179 Mean Platelet Volume 11.3 H Neutrophils % 64.2 Lymphocytes % 25.6 Monocytes % 9.6 Eosinophils % 0.3 Basophils % 0.0 Nucleated Red Blood Cells % 0.0 Neutrophils # 2.4 Lymphocytes # 1.0 Monocytes # 0.4 Eosinophils # 0.0 Basophils # 0.0 Nucleated Red Blood Cells # 0.0 Sodium Level 137 Potassium Level 3.7 Chloride Level 107 Carbon Dioxide Level 24 Anion Gap 10 Blood Urea Nitrogen 5 L Creatinine 0.67 Glucose Level 113 Calcium Level 10.0 Phosphorus Level 3.2 Magnesium Level 2.3 Prothrombin Time 15.8 H Prothrombin Time Ratio 1.2 INR International Normalized Ratio 1.25 Activated Partial Thromboplast Time 32.6 Medications Medications Current Medications Ondansetron HCl (Zofran Inj) 4 mg Q6H PRN IV NAUSEA AND/OR VOMITING; Start at 01:30 Acetaminophen (Tylenol Supp) 650 mg Q4H PRN [place] PAIN LEVEL 1-3 OR FEVER; Start 02/12/17 at 01:30 Pantoprazole (Protonix Iv) 40 mg DAILY@06 IV Last administered on 02/13/17 08: 40; Admin Dose 40 MG; Start 02/12/17 at 06:00 Labetalol HCl (Labetalol) 10 mg Q10M PRN IV ELEVATED BLOOD PRESSURE; Start at 01:30 Acetaminophen (Tylenol Tab) 650 mg Q4H PRN PO Temp greater than 99.6F; Start at 01:30 Docusate Sodium (Colace) 100 mg BID PO Last administered on 02/13/17 08:41; Admin Dose 100 MG; Start 02/12/17 at 09:00 Atorvastatin Calcium (Lipitor) 80 mg HS PO Last administered on 02/12/17 21:22 ; Admin Dose 80 MG; Start 02/12/17 at 21:00 Carvedilol (Coreg) 6.25 mg BID PO Last administered on 02/13/17 08:42; Admin Dose 6.25 MG; Start 02/12/17 at 09:30 Valsartan (Diovan) 80 mg DAILY PO Last administered on 02/13/17 08:41; Admin Dose 80 MG; Start 02/12/17 at 09:30 Aspirin (Aspirin) 81 mg DAILY PO Last administered on 02/13/17 08:42; Admin Dose 81 MG; Start 02/13/17 at 09:00 Clopidogrel Bisulfate 75 mg 75 mg DAILY PO Last administered on 02/13/17 08:42 ; Admin Dose 75 MG; Start 02/13/17 at 09:00 Sodium Chloride 250 ml @ 250 mls/hr Q1H ONCE IV ; Start 02/13/17 at 12:00; Stop 02/13/17 at 12:59 Sodium Chloride (NS) 250 ml @ 250 mls/hr Q1H PRN IV BLOOD PRESSURE SUPPORT; Start 02/13/17 at 12:00 LOREE PITT MD February 13, 2017 11:50
[2017-02-13] MEDS ORDERED: SOD CHLORIDE 0.9% 250 ML IV ONE (12:00)
[2017-02-13] MEDS ORDERED: SOD CHLORIDE 0.9% 250 ML IV PRN (12:00)
--- NOTE | 2017-02-13 15:17 | CONS ---
Date/Time of Note Date/Time of Note DATE: 02/13/17 TIME: 15:10 Consult Date/Type/Reason Admit Date/Time February 12, 2017 at 01:36 Initial Consult Date 02/12/17 Type of Consultation: Neurology Reason for Consultation Left MCA and Left occipital cardioembolic stroke Ordering Provider: ERASTO LUIS Subjective expressive aphasia -mild right arm tingling started on heparin with pTT 58-68 per cardiac protocol no bolus on aspirin and plavix Objective Vital Signs Date Time Temp Pulse Resp B/P Pulse Ox O2 Delivery O2 Flow Rate FiO2 02/13/17 13:00 66 23 106/70 100 Room Air 02/13/17 12:00 98.3 02/12/17 08:00 2.0 02/11/17 20:20 30 Intake and Output 02/12/17 02/12/17 02/13/17 15:00 23:00 07:00 Intake Total 750 ml 500 ml Output Total 950 ml 600 ml 320 ml Balance -200 ml -100 ml -320 ml Exam awake and alert appears stated age NAD mild delay in speech and some word finding difficulty she can name simple objects, thumb, eye brow, pen can repeat phrases with mild delay able to provide history regarding details on prior hospital admission with delay in speech CN: MINERVA, VFF EOMI no nystagmus mild right NLF flattening sensation intact palate upgoing uvula midline scm/trap intact tongue midline no bleeding noted in mouth Motor: no drift in arms or legs full strength Sensory: decreased to right arm compared to left Reflexes 1+ throughout toes withdraw bilaterally Coordination: no FTN ataxia gait not tested Results/Medications Result Diagram: 02/13/1712 02/13/17 0512 Results 24 hrs Laboratory Tests Test 02/13/17 05:12 02/13/17 09:23 White Blood Count 3.8 #L Red Blood Count 4.10 L Hemoglobin 12.9 Hematocrit 38.5 Mean Corpuscular Volume 93.9 Mean Corpuscular Hemoglobin 31.5 Mean Corpuscular Hemoglobin Concent 33.5 Red Cell Distribution Width 12.4 Platelet Count 179 Mean Platelet Volume 11.3 H Neutrophils % 64.2 Lymphocytes % 25.6 Monocytes % 9.6 Eosinophils % 0.3 Basophils % 0.0 Nucleated Red Blood Cells % 0.0 Neutrophils # 2.4 Lymphocytes # 1.0 Monocytes # 0.4 Eosinophils # 0.0 Basophils # 0.0 Nucleated Red Blood Cells # 0.0 Sodium Level 137 Potassium Level 3.7 Chloride Level 107 Carbon Dioxide Level 24 Anion Gap 10 Blood Urea Nitrogen 5 L Creatinine 0.67 Glucose Level 113 Calcium Level 10.0 Phosphorus Level 3.2 Magnesium Level 2.3 Prothrombin Time 15.8 H Prothrombin Time Ratio 1.2 INR International Normalized Ratio 1.25 Activated Partial Thromboplast Time 32.6 Medications Current Medications Ondansetron HCl (Zofran Inj) 4 mg Q6H PRN IV NAUSEA AND/OR VOMITING; Start at 01:30 Acetaminophen (Tylenol Supp) 650 mg Q4H PRN [place] PAIN LEVEL 1-3 OR FEVER; Start 02/12/17 at 01:30 Pantoprazole (Protonix Iv) 40 mg DAILY@06 IV Last administered on 02/13/17 08: 40; Admin Dose 40 MG; Start 02/12/17 at 06:00 Labetalol HCl (Labetalol) 10 mg Q10M PRN IV ELEVATED BLOOD PRESSURE; Start at 01:30 Acetaminophen (Tylenol Tab) 650 mg Q4H PRN PO Temp greater than 99.6F; Start at 01:30 Docusate Sodium (Colace) 100 mg BID PO Last administered on 02/13/17 08:41; Admin Dose 100 MG; Start 02/12/17 at 09:00 Atorvastatin Calcium (Lipitor) 80 mg HS PO Last administered on 02/12/17 21:22 ; Admin Dose 80 MG; Start 02/12/17 at 21:00 Carvedilol (Coreg) 6.25 mg BID PO Last administered on 02/13/17 08:42; Admin Dose 6.25 MG; Start 02/12/17 at 09:30 Valsartan (Diovan) 80 mg DAILY PO Last administered on 02/13/17 08:41; Admin Dose 80 MG; Start 02/12/17 at 09:30 Aspirin (Aspirin) 81 mg DAILY PO Last administered on 02/13/17 08:42; Admin Dose 81 MG; Start 02/13/17 at 09:00 Clopidogrel Bisulfate 75 mg 75 mg DAILY PO Last administered on 02/13/17 08:42 ; Admin Dose 75 MG; Start 02/13/17 at 09:00 Sodium Chloride (NS) 250 ml @ 250 mls/hr Q1H PRN IV BLOOD PRESSURE SUPPORT; Start 02/13/17 at 12:00 Assessment/Plan Chief Complaint/Hosp Course 56 year old female with recent anterior wall STEMI requiring LAD stent was on dual antiplatelet therapy with ASA/Plavix admitted for Left MCA stroke s/p IV tPA received on 02/11 20:55 with confirmed LV thrombus. Recommendations: -Continue ICU level monitoring frequent neuro checks, stat Head CT for any decline in exam -heparin no bolus with lower pTT following protocol 58-68 plan to transition to Coumadin if she remains neurologically stable continue dual antiplatelet although she is at risk for hemorrhagic conversion in this acute period she is at an extremely high risk for stent thrombosis and further embolic events from LV thrombus -continue high dose statin -continue tele monitoring for afib -speech reevaluation for diet upgrade and speech therapy -on heparin for DVT ppx -will continue to follow Problems: STAS COLLINS MD February 13, 2017 15:17
[2017-02-13] MEDS ORDERED: WARFARIN 5 MG TAB PO ONE (17:00)
[2017-02-13] MEDS ORDERED: WARFARIN 5 MG TAB PO SCH (17:00)
[2017-02-13] MEDS: ATORVASTATIN 80 MG TAB PO SCH (20:53)
[2017-02-14] VITALS (23 sets, daily range): BP systolic 90–189; BP diastolic 57–121; PULSE 59–76; RESP 14–32
[2017-02-14 05:35] LABS: ADD SCAN DIFF NO
[2017-02-14 05:39] LABS: BASOPHILS % 0.4 % (0.0-2.0); EOSINOPHILS % 0.4 % (0.0-7.0); HEMATOCRIT 37.2 % (37.0-47.0); HEMOGLOBIN 12.3 g/dl (12.0-16.0); LYMPHOCYTES % 35.9 % (15.0-51.0); MEAN CORPUSCULAR HEMOGLOBIN 31.1 pg (29.0-33.0); MEAN CORPUSCULAR HGB CONC 33.1 g/dl (32.0-37.0); MEAN CORPUSCULAR VOLUME 94.2 fl (82.0-101.0); MEAN PLATELET VOLUME 11.3 fl (7.4-10.4); MONOCYTE # 0.3 10^3/ul (0.3-0.9); MONOCYTES % 12.1 % (0.0-11.0); NEUTROPHIL # 1.4 10^3/ul (1.6-7.5); NEUTROPHILS % 50.8 % (39.0-77.0); PLATELET COUNT 182 10^3/UL (140-415); RED BLOOD COUNT 3.95 10^6/ul (4.20-5.40); WHITE BLOOD COUNT 2.7 10^3/ul (4.8-10.8)
[2017-02-14] MEDS: PANTOPRAZOLE 40 MG INJ IV SCH (05:54)
[2017-02-14 06:00] LABS: POTASSIUM 3.3 mmol/L (3.5-5.1)
[2017-02-14 06:03] LABS: CALCIUM 9.9 mg/dl (8.4-10.2); CREATININE 0.66 mg/dl (0.44-1.00)
[2017-02-14 06:04] LABS: MAGNESIUM 2.3 mg/dl (1.7-2.5)
[2017-02-14] MEDS: HEPARIN 25000 UNITS/250 ML 250 ML IV SCH ×2 (07:46→23:54)
--- NOTE | 2017-02-14 07:56 | PN ---
Date/Time of Note Date/Time of Note DATE: 02/14/17 TIME: 07:52 Assessment/Plan VTE Prophylaxis VTE Prophylaxis Intervention: ambulation Lines/Catheters [facility] Peripheral IV Urinary Cath still in place: No Assessment/Plan Chief Complaint/Hosp Course 58 yo with recent STEMI of anterior wall, now presenting with an acute left MCA cva, after noncompliance with medications. Source of stroke is embolism from the left ventricle visualized on echo yesterday. Clinically she is significantly improved after receiving TPA Problems: Assessment/Plan Embolic CVA to L MCA, clinically improved after TPA AK one week ago, with stent to LAD Medication noncompliance -- per case manager specialist and my conversation with the patient, she was only taking asa and clopidogrel, could not afford other meds ( all of which were generic) LV thrombus - on heparin drip Hypertension, controlled Recommendations: Case d/w Dr. Vogel, patient tolerating heparin drip, and will defer to her regarding timing of starting warfarin Continue asa and clopidogrel for stent patency Carvedilol and valsartan for cardiomyopathy, cannot uptitrate at present due to relatively low blood pressures Atorvastatin high dose given recent AK Case management notes appreciated, and patient is uninsured and will likely [facility] Warfarin teaching, will need protime monitoring as outpatient Subjective 24 Hr Interval Summary Free Text/Dictation No events overnight. This morning patient up, walking to commode. Exam/Review of Systems Vital Signs Vitals Vital Signs Date Time Temp Pulse Resp B/P Pulse Ox O2 Delivery O2 Flow Rate FiO2 02/14/17 07:00 61 14 108/75 97 02/14/17 06:00 Room Air 02/14/17 04:00 98.9 02/12/17 08:00 2.0 02/11/17 20:20 30 Intake and Output 02/13/17 02/13/17 02/14/17 15:00 23:00 07:00 Intake Total 1255 ml 905.5 ml 469.5 ml Output Total 800 ml 450 ml 800 ml Balance 455 ml 455.5 ml -330.5 ml Exam Constitutional: alert, oriented, well developed Psych: nl mood/affect Head: normocephalic Eyes: EOMI, nl conjunctiva ENMT: nl external ears & nose Respiratory: clear to auscultation, normal air movement Cardiovascular: regular rate and rhythm, No murmurs/extra sounds Gastrointestinal: soft Musculoskeletal: nl extremities to inspection, nl gait and stance Neurological: nl mental status, nl speech Skin: nl turgor Results Result Diagram: 02/14/17 0415 02/14/17 0415 Results 24 hrs Laboratory Tests Test 02/13/17 09:23 02/13/17 17:35 02/14/17 00:26 02/14/17 04:15 Prothrombin Time 15.8 H Prothrombin Time Ratio 1.2 INR International Normalized Ratio 1.25 Activated Partial Thromboplast Time 32.6 52.7 H 56.6 H White Blood Count 2.7 #L Red Blood Count 3.95 L Hemoglobin 12.3 Hematocrit 37.2 Mean Corpuscular Volume 94.2 Mean Corpuscular Hemoglobin 31.1 Mean Corpuscular Hemoglobin Concent 33.1 Red Cell Distribution Width 12.0 Platelet Count 182 Mean Platelet Volume 11.3 H Neutrophils % 50.8 Lymphocytes % 35.9 Monocytes % 12.1 H Eosinophils % 0.4 Basophils % 0.4 Nucleated Red Blood Cells % 0.0 Neutrophils # 1.4 L Lymphocytes # 1.0 Monocytes # 0.3 Eosinophils # 0.0 Basophils # 0.0 Nucleated Red Blood Cells # 0.0 Sodium Level 140 Potassium Level 3.3 L Chloride Level 105 Carbon Dioxide Level 24 Anion Gap 14 Blood Urea Nitrogen 7 Creatinine 0.66 Glucose Level 108 Calcium Level 9.9 Magnesium Level 2.3 Medications Medications Current Medications Ondansetron HCl (Zofran Inj) 4 mg Q6H PRN IV NAUSEA AND/OR VOMITING; Start at 01:30 Acetaminophen (Tylenol Supp) 650 mg Q4H PRN [place] PAIN LEVEL 1-3 OR FEVER; Start 02/12/17 at 01:30 Pantoprazole (Protonix Iv) 40 mg DAILY@06 IV Last administered on 02/14/17 05: 54; Admin Dose 40 MG; Start 02/12/17 at 06:00 Labetalol HCl (Labetalol) 10 mg Q10M PRN IV ELEVATED BLOOD PRESSURE; Start at 01:30 Acetaminophen (Tylenol Tab) 650 mg Q4H PRN PO Temp greater than 99.6F; Start at 01:30 Docusate Sodium (Colace) 100 mg BID PO Last administered on 02/13/17 20:53; Admin Dose 100 MG; Start 02/12/17 at 09:00 Atorvastatin Calcium (Lipitor) 80 mg HS PO Last administered on 02/13/17 20:53 ; Admin Dose 80 MG; Start 02/12/17 at 21:00 Carvedilol (Coreg) 6.25 mg BID PO Last administered on 02/13/17 20:54; Admin Dose 6.25 MG; Start 02/12/17 at 09:30 Valsartan (Diovan) 80 mg DAILY PO Last administered on 02/13/17 08:41; Admin Dose 80 MG; Start 02/12/17 at 09:30 Aspirin (Aspirin) 81 mg DAILY PO Last administered on 02/13/17 08:42; Admin Dose 81 MG; Start 02/13/17 at 09:00 Clopidogrel Bisulfate 75 mg 75 mg DAILY PO Last administered on 02/13/17 08:42 ; Admin Dose 75 MG; Start 02/13/17 at 09:00 Sodium Chloride (NS) 250 ml @ 250 mls/hr Q1H PRN IV BLOOD PRESSURE SUPPORT; Start 02/13/17 at 12:00 NURIS EDOUARD February 14, 2017 07:56
[2017-02-14] MEDS: ASPIRIN 81 MG TAB PO SCH (08:22)
[2017-02-14] MEDS: DOCUSATE SODIUM 100 MG CAP PO SCH ×2 (08:22→22:38)
[2017-02-14] MEDS: VALSARTAN 80 MG TAB PO SCH (08:22)
[2017-02-14] MEDS: CLOPIDOGREL 75 MG TAB PO SCH (08:22)
[2017-02-14 09:12] LABS: INR 1.14; PROTIME 14.6 Sec (12.2-14.2); PT RATIO 1.1
[2017-02-14] MEDS ORDERED: POTASSIUM CHLORIDE (SR) 20 MEQ TAB PO STA (09:52)
--- NOTE | 2017-02-14 09:55 | PN ---
Date/Time of Note Date/Time of Note DATE: 02/14/17 TIME: 09:53 Assessment/Plan VTE Prophylaxis VTE Prophylaxis Intervention: other Lines/Catheters IV [facility] Peripheral IV Urinary Cath still in place: No Assessment/Plan Chief Complaint/Hosp Course Assessment and plan: #1 acute CVA: Patient is status post TPA. Neurology has been consulted, continue aspirin, Plavix, heparin at this time , transition to Coumadin if cleared by neurology Follow-up neurology recommendation #2 recent PA: Patient is status post stent placement. She did show ST elevations on her EKG. cardiology Dr. Osborn has been consulted , no indication for cardiac cath at this time . Continue aggressive medical management #3 Systolic heart failure: Patient is currently compensated. Recent echo showed ejection fraction of 35%. Defer further management to cardiology. #4 DVT and GI prophylaxis: Protonix IV, SCDs. Chemical prophylaxis contraindicated at this time secondary to patient receiving TPA. Transferred to telemetry floor if clear by neurology and cardiology Problems: Subjective 24 Hr Interval Summary Free Text/Dictation Patient denies of any chest pain or shortness of breath Denies of any headache or dizziness Denies having difficulty with her speech or visual acuity Exam/Review of Systems Vital Signs Vitals Vital Signs Date Time Temp Pulse Resp B/P Pulse Ox O2 Delivery O2 Flow Rate FiO2 02/14/17 08:00 98.4 70 32 111/75 100 Room Air 2.0 02/11/17 20:20 30 Intake and Output 02/13/17 02/13/17 02/14/17 15:00 23:00 07:00 Intake Total 1255 ml 905.5 ml 481.5 ml Output Total 800 ml 450 ml 800 ml Balance 455 ml 455.5 ml -318.5 ml Exam General: The patient is well-developed, Not in acute distress. HEENT: Atraumatic, normocephalic. The pupils are equal and round . Neck: Supple with full range of motion. Chest: Normal expansion of the thorax during inspiration Lungs: Clear to auscultation bilaterally Heart: Normal S1-S2, Regular rhythm and rate. Abdomen: Soft , nontender, nondistended , bowel sounds are present. Extremities: Normal to inspection, no edema no cyanosis Neurologic: Normal mental status,The patient is awake, alert and oriented . Results Result Diagram: 02/14/17 0415 02/14/17 0415 Results 24 hrs Laboratory Tests Test 02/13/17 17:35 02/14/17 00:26 02/14/17 04:15 02/14/17 07:40 Activated Partial Thromboplast Time 52.7 H 56.6 H 72.8 *H White Blood Count 2.7 #L Red Blood Count 3.95 L Hemoglobin 12.3 Hematocrit 37.2 Mean Corpuscular Volume 94.2 Mean Corpuscular Hemoglobin 31.1 Mean Corpuscular Hemoglobin Concent 33.1 Red Cell Distribution Width 12.0 Platelet Count 182 Mean Platelet Volume 11.3 H Neutrophils % 50.8 Lymphocytes % 35.9 Monocytes % 12.1 H Eosinophils % 0.4 Basophils % 0.4 Nucleated Red Blood Cells % 0.0 Neutrophils # 1.4 L Lymphocytes # 1.0 Monocytes # 0.3 Eosinophils # 0.0 Basophils # 0.0 Nucleated Red Blood Cells # 0.0 Sodium Level 140 Potassium Level 3.3 L Chloride Level 105 Carbon Dioxide Level 24 Anion Gap 14 Blood Urea Nitrogen 7 Creatinine 0.66 Glucose Level 108 Calcium Level 9.9 Magnesium Level 2.3 Prothrombin Time 14.6 H Prothrombin Time Ratio 1.1 INR International Normalized Ratio 1.14 Medications Medications Current Medications Ondansetron HCl (Zofran Inj) 4 mg Q6H PRN IV NAUSEA AND/OR VOMITING; Start at 01:30 Acetaminophen (Tylenol Supp) 650 mg Q4H PRN [place] PAIN LEVEL 1-3 OR FEVER; Start 02/12/17 at 01:30 Pantoprazole (Protonix Iv) 40 mg DAILY@06 IV Last administered on 02/14/17 05: 54; Admin Dose 40 MG; Start 02/12/17 at 06:00 Labetalol HCl (Labetalol) 10 mg Q10M PRN IV ELEVATED BLOOD PRESSURE; Start at 01:30 Acetaminophen (Tylenol Tab) 650 mg Q4H PRN PO Temp greater than 99.6F; Start at 01:30 Docusate Sodium (Colace) 100 mg BID PO Last administered on 02/14/17 08:22; Admin Dose 100 MG; Start 02/12/17 at 09:00 Atorvastatin Calcium (Lipitor) 80 mg HS PO Last administered on 02/13/17 20:53 ; Admin Dose 80 MG; Start 02/12/17 at 21:00 Carvedilol (Coreg) 6.25 mg BID PO Last administered on 02/13/17 20:54; Admin Dose 6.25 MG; Start 02/12/17 at 09:30 Valsartan (Diovan) 80 mg DAILY PO Last administered on 02/14/17 08:22; Admin Dose 80 MG; Start 02/12/17 at 09:30 Aspirin (Aspirin) 81 mg DAILY PO Last administered on 02/14/17 08:22; Admin Dose 81 MG; Start 02/13/17 at 09:00 Clopidogrel Bisulfate (plaVIX) 75 mg DAILY PO Last administered on 02/14/17 08 :22; Admin Dose 75 MG; Start 02/13/17 at 09:00 LOREE PITT MD February 14, 2017 09:55
--- NOTE | 2017-02-14 13:13 | CONS ---
Date/Time of Note Date/Time of Note DATE: 02/14/17 TIME: 13:09 Assessment/Plan Assessment/Plan Chief Complaint/Hosp Course Stroke Problems: Additional Assessment/Plan 56 year old female with recent anterior wall STEMI requiring LAD stent was on dual antiplatelet therapy with ASA/Plavix admitted for Left MCA stroke s/p IV tPA received on 02/11 20:55 with confirmed LV thrombus. Recommendations: -Continue monitoring -frequent neuro checks, stat Head CT for any decline in exam -heparin no bolus with lower pTT following protocol 58-68 plan to transition to Coumadin if she remains neurologically stable -continue dual antiplatelet although she is at risk for hemorrhagic conversion in this acute period she is at an extremely high risk for stent thrombosis and further embolic events from LV thrombus -continue high dose statin -continue tele monitoring for afib -speech reevaluation for diet upgrade and speech therapy -on heparin for DVT ppx -Okay with starting Coumadin per recommendation of cardiology and dual antiplatelet therapy may be discontinued -will continue to follow Consultation Date/Type/Reason Admit Date/Time February 12, 2017 at 01:36 Initial Consult Date 02/12/17 Type of Consultation: Neurology Referring Provider: ERASTO LUIS 24 HR Interval Summary Free Text/Dictation She has improved in her symptoms and is currently sitting in bed having lunch. Exam/Review of Systems Vital Signs Vitals Vital Signs Date Time Temp Pulse Resp B/P Pulse Ox O2 Delivery O2 Flow Rate FiO2 02/14/17 11:00 68 17 114/83 98 02/14/17 08:00 98.4 Room Air 02/11/17 20:20 30 Intake and Output 02/13/17 02/13/17 02/14/17 15:00 23:00 07:00 Intake Total 1255 ml 905.5 ml 481.5 ml Output Total 800 ml 450 ml 800 ml Balance 455 ml 455.5 ml -318.5 ml Exam Constitutional: alert, oriented, well developed Psych: nl mood/affect, no complaints Head: atraumatic, normocephalic Eyes: EOMI, nl conjunctiva, nl lids, nl sclera ENMT: mucosa pink and moist, nl external ears & nose, nl lips & teeth, nl nasal mucosa & septum Neck: non-tender, supple Respiratory: clear to auscultation, normal air movement Cardiovascular: nl pulses, regular rate and rhythm Gastrointestinal: nl liver, spleen, non-tender, soft Extremities: normal pulses Neurological: DYE OPERATOR II-XII intact, nl mental status, nl speech Skin: nl turgor Results Result Diagram: 02/14/17 0415 02/14/17 0415 Results 24 hrs Laboratory Tests Test 02/13/17 17:35 02/14/17 00:26 02/14/17 04:15 02/14/17 07:40 Activated Partial Thromboplast Time 52.7 H 56.6 H 72.8 *H White Blood Count 2.7 #L Red Blood Count 3.95 L Hemoglobin 12.3 Hematocrit 37.2 Mean Corpuscular Volume 94.2 Mean Corpuscular Hemoglobin 31.1 Mean Corpuscular Hemoglobin Concent 33.1 Red Cell Distribution Width 12.0 Platelet Count 182 Mean Platelet Volume 11.3 H Neutrophils % 50.8 Lymphocytes % 35.9 Monocytes % 12.1 H Eosinophils % 0.4 Basophils % 0.4 Nucleated Red Blood Cells % 0.0 Neutrophils # 1.4 L Lymphocytes # 1.0 Monocytes # 0.3 Eosinophils # 0.0 Basophils # 0.0 Nucleated Red Blood Cells # 0.0 Sodium Level 140 Potassium Level 3.3 L Chloride Level 105 Carbon Dioxide Level 24 Anion Gap 14 Blood Urea Nitrogen 7 Creatinine 0.66 Glucose Level 108 Calcium Level 9.9 Magnesium Level 2.3 Prothrombin Time 14.6 H Prothrombin Time Ratio 1.1 INR International Normalized Ratio 1.14 Medications Medications Current Medications Ondansetron HCl (Zofran Inj) 4 mg Q6H PRN IV NAUSEA AND/OR VOMITING; Start at 01:30 Acetaminophen (Tylenol Supp) 650 mg Q4H PRN [place] PAIN LEVEL 1-3 OR FEVER; Start 02/12/17 at 01:30 Pantoprazole (Protonix Iv) 40 mg DAILY@06 IV Last administered on 02/14/17 05: 54; Admin Dose 40 MG; Start 02/12/17 at 06:00 Labetalol HCl (Labetalol) 10 mg Q10M PRN IV ELEVATED BLOOD PRESSURE; Start at 01:30 Acetaminophen (Tylenol Tab) 650 mg Q4H PRN PO Temp greater than 99.6F; Start at 01:30 Docusate Sodium (Colace) 100 mg BID PO Last administered on 02/14/17 08:22; Admin Dose 100 MG; Start 02/12/17 at 09:00 Atorvastatin Calcium (Lipitor) 80 mg HS PO Last administered on 02/13/17 20:53 ; Admin Dose 80 MG; Start 02/12/17 at 21:00 Carvedilol (Coreg) 6.25 mg BID PO Last administered on 02/14/17 11:17; Admin Dose 6.25 MG; Start 02/12/17 at 09:30 Valsartan (Diovan) 80 mg DAILY PO Last administered on 02/14/17 08:22; Admin Dose 80 MG; Start 02/12/17 at 09:30 Aspirin (Aspirin) 81 mg DAILY PO Last administered on 02/14/17 08:22; Admin Dose 81 MG; Start 02/13/17 at 09:00 Clopidogrel Bisulfate (plaVIX) 75 mg DAILY PO Last administered on 02/14/17 08 :22; Admin Dose 75 MG; Start 02/13/17 at 09:00 Procedures Procedures 02/12/2017 CT scan of the brain IMPRESSION: 1. No acute intracranial abnormality. No intracranial hemorrhage, extra-axial fluid collection, mass lesion or hydrocephalous. 2. Stable mild peripheral and central cerebral volume loss. RPTAT: HGAS .Liban Rizvi MD, MD Date Time Electronically viewed and signed by .Liban Rizvi MD, on 02/12/2017 22: 41 02/12/2017 MRI of the brain IMPRESSION: 1. Acute/recent left posterior frontal / parietal lobe infarct. 2. Small areas of acute/recent infarct involving the posterior left insular cortex as well as the left occipital lobe. 3. No intracranial hemorrhage, mass lesion or hydrocephalous. The above findings were discussed with Patient's Nurse Taylor by telephone on 02/12/2017 6:29:28 PM. RPTAT: HGAS .Liban Rizvi MD, Date Time Electronically viewed and signed by .Liban Rizvi MD, MD on 02/12/2017 18: 31 TAMMY CASTRO MD February 14, 2017 13:13
--- NOTE | 2017-02-14 20:24 | RADRPT ---
Echocardiogram Report Patient Name: ARYA HINSON Gender: Female Date: 1960 Study Date: 13-Feb-2017 Runner Out: Kelsi Saenz [facility] Location: 119 Ref. Physician: STAS COLLINS Quality: Good Procedures: Transthoracic echocardiogram examination. Indications: bubble study r/o PFO. Findings Left Ventricle: The left ventricular ejection fraction is visually estimated at 45 %. Atrial Septum: Agitated saline was injected intravenously for microbubble contrast study. No right to left shunt was identified with and with out valsalva maneuver. Conclusions Moderately reduced left ventricular systolic function with akinesis in the distribution of the LAD. Mobile thrombus seen at the apex. Bubble study negative for right to left shunting. Electronically Signed By: Imelda Osborn 14-Feb-2017 20:23:08 -0700 Patient Name: ARYA HINSON Study Date: 13-Feb-2017 [id number]
[2017-02-14] MEDS ORDERED: WARFARIN 5 MG TAB PO ONE (20:30)
[2017-02-14] MEDS: ATORVASTATIN 80 MG TAB PO SCH (22:32)
[2017-02-14] MEDS ORDERED: ZOLPIDEM 5 MG TAB PO ONE (23:45)
[2017-02-15] VITALS (12 sets, daily range): BP systolic 99–112; BP diastolic 59–73; PULSE 61–75; RESP 18–20
[2017-02-15] MEDS: PANTOPRAZOLE 40 MG INJ IV SCH (05:58)
[2017-02-15] MEDS: HEPARIN 25000 UNITS/250 ML 250 ML IV SCH ×3 (06:15→15:02)
[2017-02-15 07:08] LABS: INR 1.12; PROTIME 14.4 Sec (12.2-14.2); PT RATIO 1.1
[2017-02-15] MEDS: CLOPIDOGREL 75 MG TAB PO SCH (08:24)
[2017-02-15] MEDS: VALSARTAN 80 MG TAB PO SCH (08:24)
[2017-02-15] MEDS: ASPIRIN 81 MG TAB PO SCH (08:24)
[2017-02-15] MEDS: DOCUSATE SODIUM 100 MG CAP PO SCH ×2 (08:24→20:13)
--- NOTE | 2017-02-15 08:33 | PN ---
DATE: 02/15/2017 CARDIOLOGY PROGRESS NOTE: The cardiology followup on behalf of Dr. Osborn. SUBJECTIVE: The patient remains in sinus rhythm. No chest pain or pressure. No palpitation. Want s to go home. MEDICATIONS: Reviewed as per medication reconciliation, personally reviewed. PHYSICAL EXAMINATION: VITAL SIGNS: Temperature 98.1, heart rate of 60, blood pressure 100/59, respiration rate of 20, sat urating 98%. HEENT: Normocephalic, atraumatic. No acute distress. Pupils are equal. CARDIOVASCULAR: Regular rate and rhythm. PULMONARY: No wheezes, rales, or rhonchi. GASTROINTESTINAL: Soft, nontender. EXTREMITIES: Trivial edema. NEUROLOGIC: Awake, responds appropriately. PSYCHIATRIC: Depressed mood. LABORATORY: INR is 1.12. ASSESSMENT AND PLAN: 1. Acute cerebrovascular accident. 2. Coronary artery disease, status post recent ST elevation myocardial infarction. 3. Status post percutaneous coronary intervention. 4. Possible LV thrombus (medication noncompliance). 5. Hypertension under good control. RECOMMENDATIONS: We will continue with the current cardiac care. Coumadin and heparin are being ad justed as per internal medicine. Aspirin and Plavix will be continued for the time being. Consider stopping the aspirin once the INR is therapeutic, though. Dictated By: MELISSA KELLEY/ABDIFATAH Conf#: [id number] DID#: [id number]
[2017-02-15 08:44] LABS: ADD SCAN DIFF NO
[2017-02-15 08:47] LABS: BASOPHILS % 0.5 % (0.0-2.0); EOSINOPHILS % 0.5 % (0.0-7.0); HEMATOCRIT 36.5 % (37.0-47.0); HEMOGLOBIN 12.1 g/dl (12.0-16.0); LYMPHOCYTES # 0.8 10^3/ul (0.8-2.9); LYMPHOCYTES % 38.5 % (15.0-51.0); MEAN CORPUSCULAR HEMOGLOBIN 31.5 pg (29.0-33.0); MEAN CORPUSCULAR HGB CONC 33.2 g/dl (32.0-37.0); MEAN CORPUSCULAR VOLUME 95.1 fl (82.0-101.0); MEAN PLATELET VOLUME 11.7 fl (7.4-10.4); MONOCYTE # 0.3 10^3/ul (0.3-0.9); MONOCYTES % 12.8 % (0.0-11.0); NEUTROPHILS % 47.2 % (39.0-77.0); PLATELET COUNT 196 10^3/UL (140-415); RED BLOOD COUNT 3.84 10^6/ul (4.20-5.40); RED CELL DISTRIBUTION WIDTH 12.3 % (11.5-14.5); WHITE BLOOD COUNT 2.2 10^3/ul (4.8-10.8)
[2017-02-15 08:53] LABS: CALCIUM 10.3 mg/dl (8.4-10.2); CREATININE 0.69 mg/dl (0.44-1.00); POTASSIUM 3.7 mmol/L (3.5-5.1)
--- NOTE | 2017-02-15 12:17 | CONS ---
Date/Time of Note Date/Time of Note DATE: 02/15/17 TIME: 12:15 Assessment/Plan Assessment/Plan Chief Complaint/Hosp Course Stroke Problems: Additional Assessment/Plan 56 year old female with recent anterior wall STEMI requiring LAD stent was on dual antiplatelet therapy with ASA/Plavix admitted for Left MCA stroke s/p IV tPA received on 02/11 20:55 with confirmed LV thrombus. Recommendations: -Continue monitoring -frequent neuro checks, stat Head CT for any decline in exam -heparin no bolus with lower pTT following protocol 58-68 plan to transition to Coumadin if she remains neurologically stable -continue high dose statin -continue tele monitoring for afib -speech reevaluation for diet upgrade and speech therapy -on heparin for DVT ppx -Continue Coumadin -will continue to follow Consultation Date/Type/Reason Admit Date/Time February 12, 2017 at 01:36 Initial Consult Date 02/12/17 Type of Consultation: Neurology Referring Provider: ERASTO LUIS 24 HR Interval Summary Free Text/Dictation She has been doing well. No new complaints. She has been more out of ICU Exam/Review of Systems Vital Signs Vitals Vital Signs Date Time Temp Pulse Resp B/P Pulse Ox O2 Delivery O2 Flow Rate FiO2 02/15/17 09:05 70 02/15/17 08:29 98.1 20 104/66 98 02/14/17 08:00 Room Air 02/11/17 20:20 30 Intake and Output 02/14/17 02/14/17 02/15/17 15:00 23:00 07:00 Intake Total 379.2 ml 31.2 ml 250 ml Output Total 900 ml 300 ml Balance -520.8 ml -268.8 ml 250 ml Exam Constitutional: alert, oriented, well developed Psych: nl mood/affect, no complaints Head: atraumatic, normocephalic Eyes: EOMI, nl conjunctiva, nl lids, nl sclera ENMT: mucosa pink and moist, nl external ears & nose, nl lips & teeth, nl nasal mucosa & septum Neck: non-tender, supple Respiratory: clear to auscultation, normal air movement Cardiovascular: nl pulses, regular rate and rhythm Gastrointestinal: nl liver, spleen, non-tender, soft Extremities: normal pulses Neurological: TORTS LAW PROFESSOR II-XII intact, nl mental status, nl speech, nl strength Skin: nl turgor, rash or lesions Lymph: nl lymph nodes Results Result Diagram: 02/15/17 0550 02/15/17 0550 Results 24 hrs Laboratory Tests Test 02/14/17 15:12 02/14/17 22:15 02/15/17 05:50 Activated Partial Thromboplast Time 73.5 *H 57.4 H 77.7 *H White Blood Count 2.2 L Red Blood Count 3.84 L Hemoglobin 12.1 Hematocrit 36.5 L Mean Corpuscular Volume 95.1 Mean Corpuscular Hemoglobin 31.5 Mean Corpuscular Hemoglobin Concent 33.2 Red Cell Distribution Width 12.3 Platelet Count 196 Mean Platelet Volume 11.7 H Neutrophils % 47.2 Lymphocytes % 38.5 Monocytes % 12.8 H Eosinophils % 0.5 Basophils % 0.5 Nucleated Red Blood Cells % 0.0 Neutrophils # 1.0 L Lymphocytes # 0.8 Monocytes # 0.3 Eosinophils # 0.0 Basophils # 0.0 Nucleated Red Blood Cells # 0.0 Prothrombin Time 14.4 H Prothrombin Time Ratio 1.1 INR International Normalized Ratio 1.12 Sodium Level 138 Potassium Level 3.7 Chloride Level 109 Carbon Dioxide Level 23 Anion Gap 10 Blood Urea Nitrogen 5 L Creatinine 0.69 Glucose Level 111 Calcium Level 10.3 H Medications Medications Current Medications Ondansetron HCl (Zofran Inj) 4 mg Q6H PRN IV NAUSEA AND/OR VOMITING; Start at 01:30 Acetaminophen (Tylenol Supp) 650 mg Q4H PRN [place] PAIN LEVEL 1-3 OR FEVER; Start 02/12/17 at 01:30 Pantoprazole (Protonix Iv) 40 mg DAILY@06 IV Last administered on 02/15/17 05: 58; Admin Dose 40 MG; Start 02/12/17 at 06:00 Labetalol HCl (Labetalol) 10 mg Q10M PRN IV ELEVATED BLOOD PRESSURE; Start at 01:30 Acetaminophen (Tylenol Tab) 650 mg Q4H PRN PO Temp greater than 99.6F; Start at 01:30 Docusate Sodium (Colace) 100 mg BID PO Last administered on 02/15/17 08:24; Admin Dose 100 MG; Start 02/12/17 at 09:00 Atorvastatin Calcium (Lipitor) 80 mg HS PO Last administered on 02/14/17 22:32 ; Admin Dose 80 MG; Start 02/12/17 at 21:00 Carvedilol (Coreg) 6.25 mg BID PO Last administered on 02/15/17 08:24; Admin Dose 6.25 MG; Start 02/12/17 at 09:30 Valsartan (Diovan) 80 mg DAILY PO Last administered on 02/15/17 08:24; Admin Dose 80 MG; Start 02/12/17 at 09:30 Aspirin (Aspirin) 81 mg DAILY PO Last administered on 02/15/17 08:24; Admin Dose 81 MG; Start 02/13/17 at 09:00 Clopidogrel Bisulfate (plaVIX) 75 mg DAILY PO Last administered on 02/15/17 08 :24; Admin Dose 75 MG; Start 02/13/17 at 09:00 Warfarin Sodium (Coumadin) 5 mg DAILY@17 PO ; Start 02/15/17 at 17:00 TAMMY CASTRO MD February 15, 2017 12:16
[2017-02-15] MEDS ORDERED: WARFARIN 3 MG TAB PO ONE (12:30)
--- NOTE | 2017-02-15 12:30 | PN ---
Date/Time of Note Date/Time of Note DATE: 02/15/17 TIME: 12:26 Assessment/Plan VTE Prophylaxis VTE Prophylaxis Intervention: heparin Lines/Catheters [facility] ([facility] Peripheral IV Urinary Cath still in place: No Assessment/Plan Problems: (1) CVA (cerebral vascular accident) Status: Acute Comment: After the TPA she fortunately has not had major deficits. Continue with rehabilitation therapy. In terms of having her go to the acute rehabilitation and she is a good candidate for this. She however is unfortunately had the of her's 36-year-old daughter this last week and will be wanting to go out to the . We will do we can get her formally anticoagulated to avoid future events as a source of this came from the left ventricular mural thrombus Qualifiers: CVA mechanism: embolism Precerebral and cerebral artery: middle cerebral artery Laterality of affected vessel: unspecified Qualified Code: I63.419 - Cerebrovascular accident (CVA) due to embolism of middle cerebral artery, unspecified blood vessel laterality (2) ST elevation myocardial infarction (STEMI) Status: Acute Comment: Noted as per cardiology no direct intervention at this moment Qualifiers: Involved coronary artery: unspecified coronary artery Qualified Code: I21.3 - ST elevation myocardial infarction (STEMI), unspecified artery (3) tPA adm status 24 hr SHOVE UP Status: Acute Comment: Noted (4) Systolic congestive heart failure with reduced left ventricular function, NYHA class 2 Status: Chronic Comment: She is on combination of A2 receptor keisha and beta blockade as best tolerated at this time. Continue with this. She is also anticoagulated for the LV mural thrombus. (5) LV (left ventricular) mural thrombus Status: Chronic Comment: Formal anticoagulation with warfarin in progress. Anticipate will have the INR up by Friday which means we will discontinue the aspirin on Friday as per cardiology progress note Subjective 24 Hr Interval Summary Free Text/Dictation Patient reports that her upper and lower extremities are doing relatively well for strength and coordination. She reports still some issues with her speech after the neurologic event. Constitutional: no complaints (No fevers chills or sweats) Respiratory: no complaints Cardiovascular: no complaints Gastrointestinal: no complaints Genitourinary: no complaints Exam/Review of Systems Vital Signs Vitals Vital Signs Date Time Temp Pulse Resp B/P Pulse Ox O2 Delivery O2 Flow Rate FiO2 5/20/17 12:16 98.4 63 20 110/73 100 02/14/17 08:00 Room Air 02/11/17 20:20 30 Intake and Output 02/14/17 02/14/17 02/15/17 15:00 23:00 07:00 Intake Total 379.2 ml 31.2 ml 250 ml Output Total 900 ml 300 ml Balance -520.8 ml -268.8 ml 250 ml Exam Pleasant -Swiss female sitting in bed Constitutional: alert, oriented Neck: non-tender, supple Respiratory: clear to auscultation, normal air movement Cardiovascular: nl pulses, regular rate and rhythm Gastrointestinal: nl liver, spleen, non-tender, soft Results Result Diagram: 02/15/17 0550 02/15/17 0550 Results 24 hrs Laboratory Tests Test 02/14/17 15:12 02/14/17 22:15 02/15/17 05:50 Activated Partial Thromboplast Time 73.5 *H 57.4 H 77.7 *H White Blood Count 2.2 L Red Blood Count 3.84 L Hemoglobin 12.1 Hematocrit 36.5 L Mean Corpuscular Volume 95.1 Mean Corpuscular Hemoglobin 31.5 Mean Corpuscular Hemoglobin Concent 33.2 Red Cell Distribution Width 12.3 Platelet Count 196 Mean Platelet Volume 11.7 H Neutrophils % 47.2 Lymphocytes % 38.5 Monocytes % 12.8 H Eosinophils % 0.5 Basophils % 0.5 Nucleated Red Blood Cells % 0.0 Neutrophils # 1.0 L Lymphocytes # 0.8 Monocytes # 0.3 Eosinophils # 0.0 Basophils # 0.0 Nucleated Red Blood Cells # 0.0 Prothrombin Time 14.4 H Prothrombin Time Ratio 1.1 INR International Normalized Ratio 1.12 Sodium Level 138 Potassium Level 3.7 Chloride Level 109 Carbon Dioxide Level 23 Anion Gap 10 Blood Urea Nitrogen 5 L Creatinine 0.69 Glucose Level 111 Calcium Level 10.3 H Medications Medications Current Medications Ondansetron HCl (Zofran Inj) 4 mg Q6H PRN IV NAUSEA AND/OR VOMITING; Start at 01:30 Acetaminophen (Tylenol Supp) 650 mg Q4H PRN [place] PAIN LEVEL 1-3 OR FEVER; Start 02/12/17 at 01:30 Pantoprazole (Protonix Iv) 40 mg DAILY@06 IV Last administered on 02/15/17t 05: 58; Admin Dose 40 MG; Start 02/12/17 at 06:00 Labetalol HCl (Labetalol) 10 mg Q10M PRN IV ELEVATED BLOOD PRESSURE; Start at 01:30 Acetaminophen (Tylenol Tab) 650 mg Q4H PRN PO Temp greater than 99.6F; Start at 01:30 Docusate Sodium (Colace) 100 mg BID PO Last administered on 02/15/17 08:24; Admin Dose 100 MG; Start 02/12/17 at 09:00 Atorvastatin Calcium (Lipitor) 80 mg HS PO Last administered on 02/14/17 22:32 ; Admin Dose 80 MG; Start 02/12/17 at 21:00 Carvedilol (Coreg) 6.25 mg BID PO Last administered on 02/15/17 08:24; Admin Dose 6.25 MG; Start 02/12/17 at 09:30 Valsartan (Diovan) 80 mg DAILY PO Last administered on 02/15/17 08:24; Admin Dose 80 MG; Start 02/12/17 at 09:30 Aspirin (Aspirin) 81 mg DAILY PO Last administered on 02/15/17 08:24; Admin Dose 81 MG; Start 02/13/17 at 09:00 Clopidogrel Bisulfate (plaVIX) 75 mg DAILY PO Last administered on 02/15/17 08 :24; Admin Dose 75 MG; Start 02/13/17 at 09:00 Warfarin Sodium (Coumadin) 5 mg DAILY@17 PO ; Start 02/15/17 at 17:00 Warfarin Sodium (Coumadin) 3 mg NOW ONCE PO ; Start 02/15/17 at 12:30; Stop at 12:31; Status CARLOZ GARCIA MD February 15, 2017 12:30
[2017-02-15] MEDS ORDERED: WARFARIN 5 MG TAB PO SCH (17:00)
[2017-02-15] MEDS: ATORVASTATIN 80 MG TAB PO SCH (20:13)
[2017-02-16] VITALS (14 sets, daily range): BP systolic 95–119; BP diastolic 55–76; PULSE 62–75; RESP 18–70
[2017-02-16 04:31] LABS: ADD SCAN DIFF NO
[2017-02-16 04:35] LABS: BASOPHILS % 0.4 % (0.0-2.0); EOSINOPHILS % 1.3 % (0.0-7.0); HEMATOCRIT 35.8 % (37.0-47.0); LYMPHOCYTES # 0.9 10^3/ul (0.8-2.9); LYMPHOCYTES % 39.5 % (15.0-51.0); MEAN CORPUSCULAR HEMOGLOBIN 31.5 pg (29.0-33.0); MEAN CORPUSCULAR HGB CONC 33.5 g/dl (32.0-37.0); MEAN PLATELET VOLUME 11.3 fl (7.4-10.4); MONOCYTE # 0.2 10^3/ul (0.3-0.9); MONOCYTES % 10.1 % (0.0-11.0); NEUTROPHIL # 1.2 10^3/ul (1.6-7.5); NEUTROPHILS % 48.3 % (39.0-77.0); PLATELET COUNT 208 10^3/UL (140-415); RED BLOOD COUNT 3.81 10^6/ul (4.20-5.40); RED CELL DISTRIBUTION WIDTH 12.3 % (11.5-14.5); WHITE BLOOD COUNT 2.4 10^3/ul (4.8-10.8)
[2017-02-16 04:57] LABS: CALCIUM 10.4 mg/dl (8.4-10.2); CREATININE 0.71 mg/dl (0.44-1.00); POTASSIUM 3.4 mmol/L (3.5-5.1)
[2017-02-16 05:04] LABS: INR 1.21; PROTIME 15.4 Sec (12.2-14.2); PT RATIO 1.2
[2017-02-16] MEDS: PANTOPRAZOLE 40 MG INJ IV SCH (05:34)
[2017-02-16] MEDS: HEPARIN 25000 UNITS/250 ML 250 ML IV SCH ×2 (06:42→06:52)
[2017-02-16] MEDS: CLOPIDOGREL 75 MG TAB PO SCH (08:38)
[2017-02-16] MEDS: DOCUSATE SODIUM 100 MG CAP PO SCH ×2 (08:38→20:29)
[2017-02-16] MEDS: ASPIRIN 81 MG TAB PO SCH (08:38)
[2017-02-16] MEDS: VALSARTAN 80 MG TAB PO SCH (13:20)
--- NOTE | 2017-02-16 13:28 | CONS ---
Date/Time of Note Date/Time of Note DATE: 02/16/17 TIME: 13:27 Assessment/Plan Assessment/Plan Chief Complaint/Hosp Course Stroke Problems: Additional Assessment/Plan 56 year old female with recent anterior wall STEMI requiring LAD stent was on dual antiplatelet therapy with ASA/Plavix admitted for Left MCA stroke s/p IV tPA received on 02/11 20:55 with confirmed LV thrombus. Recommendations: -Continue monitoring -frequent neuro checks, stat Head CT for any decline in exam -heparin no bolus with lower pTT following protocol 58-68 plan to transition to Coumadin if she remains neurologically stable -continue high dose statin -continue tele monitoring for afib -speech reevaluation for diet upgrade and speech therapy -on heparin for DVT ppx -Continue Coumadin and keep INR between 2 and 3 -Sign off now, reconsult if necessary Consultation Date/Type/Reason Admit Date/Time February 12, 2017 at 01:36 Initial Consult Date 02/12/17 Type of Consultation: Neurology Referring Provider: ERASTO LUIS Exam/Review of Systems Vital Signs Vitals Vital Signs Date Time Temp Pulse Resp B/P Pulse Ox O2 Delivery O2 Flow Rate FiO2 02/16/17 13:19 105/56 02/16/17 12:16 75 02/16/17 12:12 98.6 20 96 02/14/17 08:00 Room Air Intake and Output 02/15/17 02/15/17 02/16/17 15:00 23:00 07:00 Intake Total 1520 ml 1100 ml Balance 1520 ml 1100 ml Exam Constitutional: alert, oriented, well developed Psych: nl mood/affect, no complaints Head: atraumatic, normocephalic Eyes: EOMI, PERRL, nl conjunctiva, nl lids, nl sclera ENMT: nl external ears & nose, nl lips & teeth, nl nasal mucosa & septum Neck: non-tender, supple Respiratory: clear to auscultation, normal air movement Cardiovascular: nl pulses, regular rate and rhythm Gastrointestinal: nl liver, spleen, non-tender, soft Extremities: normal pulses Neurological: OBSTETRICAL ANESTHESIOLOGIST II-XII intact, nl mental status, nl speech, nl strength Skin: nl turgor, No rash or lesions Lymph: nl lymph nodes Results Result Diagram: 02/16/17 0400 02/16/17 0400 Results 24 hrs Laboratory Tests Test 02/15/17 13:55 02/15/17 21:10 02/16/17 04:00 Activated Partial Thromboplast Time 82.3 *H 64.8 H 67.7 H White Blood Count 2.4 L Red Blood Count 3.81 L Hemoglobin 12.0 Hematocrit 35.8 L Mean Corpuscular Volume 94.0 Mean Corpuscular Hemoglobin 31.5 Mean Corpuscular Hemoglobin Concent 33.5 Red Cell Distribution Width 12.3 Platelet Count 208 Mean Platelet Volume 11.3 H Neutrophils % 48.3 Lymphocytes % 39.5 Monocytes % 10.1 Eosinophils % 1.3 Basophils % 0.4 Nucleated Red Blood Cells % 0.0 Neutrophils # 1.2 L Lymphocytes # 0.9 Monocytes # 0.2 L Eosinophils # 0.0 Basophils # 0.0 Nucleated Red Blood Cells # 0.0 Prothrombin Time 15.4 H Prothrombin Time Ratio 1.2 INR International Normalized Ratio 1.21 Sodium Level 140 Potassium Level 3.4 L Chloride Level 109 Carbon Dioxide Level 26 Anion Gap 8 Blood Urea Nitrogen 5 L Creatinine 0.71 Glucose Level 127 Calcium Level 10.4 H Ionized Calcium (Measured) 1.4 Medications Medications Current Medications Ondansetron HCl (Zofran Inj) 4 mg Q6H PRN IV NAUSEA AND/OR VOMITING; Start at 01:30 Acetaminophen (Tylenol Supp) 650 mg Q4H PRN [place] PAIN LEVEL 1-3 OR FEVER; Start 02/12/17 at 01:30 Pantoprazole (Protonix Iv) 40 mg DAILY@06 IV Last administered on 02/16/17 05: 34; Admin Dose 40 MG; Start 02/12/17 at 06:00 Labetalol HCl (Labetalol) 10 mg Q10M PRN IV ELEVATED BLOOD PRESSURE; Start at 01:30 Acetaminophen (Tylenol Tab) 650 mg Q4H PRN PO Temp greater than 99.6F; Start at 01:30 Docusate Sodium (Colace) 100 mg BID PO Last administered on 02/16/17 08:38; Admin Dose 100 MG; Start 02/12/17 at 09:00 Atorvastatin Calcium (Lipitor) 80 mg HS PO Last administered on 02/15/17 20:13 ; Admin Dose 80 MG; Start 02/12/17 at 21:00 Carvedilol (Coreg) 6.25 mg BID PO Last administered on 02/16/17 13:20; Admin Dose 6.25 MG; Start 02/12/17 at 09:30 Valsartan (Diovan) 80 mg DAILY PO Last administered on 02/16/17 13:20; Admin Dose 80 MG; Start 02/12/17 at 09:30 Aspirin (Aspirin) 81 mg DAILY PO Last administered on 02/16/17 08:38; Admin Dose 81 MG; Start 02/13/17 at 09:00; Stop 02/17/17 at 04:00 Clopidogrel Bisulfate (plaVIX) 75 mg DAILY PO Last administered on 02/16/17 08 :38; Admin Dose 75 MG; Start 02/13/17 at 09:00 Warfarin Sodium (Coumadin) 5 mg DAILY@17 PO Last administered on 02/15/17 17: 17; Admin Dose 5 MG; Start 02/15/17 at 17:00 TAMMY CASTRO MD February 16, 2017 13:28
--- NOTE | 2017-02-16 15:13 | PN ---
Date/Time of Note Date/Time of Note DATE: 02/16/17 TIME: 15:11 Assessment/Plan VTE Prophylaxis VTE Prophylaxis Intervention: heparin Lines/Catheters IV [facility] Peripheral IV Urinary Cath still in place: No Assessment/Plan Problems: (1) LV (left ventricular) mural thrombus Status: Chronic Comment: Anticoagulation coming online slowly. 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: Acute Comment: Noted and stable no abnormal or untoward side effects (4) ST elevation myocardial infarction (STEMI) Status: Acute Comment: Stable without medical complications Qualifiers: Involved coronary artery: unspecified coronary artery Qualified Code: I21.3 - ST elevation myocardial infarction (STEMI), unspecified artery (5) CVA (cerebral vascular accident) Status: Acute Comment: Repeat swallowing evaluation as suggested by neurology Qualifiers: CVA mechanism: embolism Precerebral and cerebral artery: middle cerebral artery Laterality of affected vessel: unspecified Qualified Code: I63.419 - Cerebrovascular accident (CVA) due to embolism of middle cerebral artery, unspecified blood vessel laterality Subjective 24 Hr Interval Summary Free Text/Dictation Patient reports no new symptoms. Constitutional: no complaints Respiratory: no complaints Cardiovascular: no complaints Gastrointestinal: no complaints Genitourinary: no complaints Exam/Review of Systems Vital Signs Vitals Vital Signs Date Time Temp Pulse Resp B/P Pulse Ox O2 Delivery O2 Flow Rate FiO2 02/16/17 13:19 105/56 02/16/17 12:16 75 02/16/17 12:12 98.6 20 96 02/14/17 08:00 Room Air Intake and Output 02/15/17 02/15/17 02/16/17 15:00 23:00 07:00 Intake Total 1520 ml 1100 ml Balance 1520 ml 1100 ml Exam Constitutional: alert, oriented Respiratory: clear to auscultation, normal air movement Cardiovascular: nl pulses, regular rate and rhythm Gastrointestinal: nl liver, spleen, non-tender, soft Results Result Diagram: 02/16/17 0400 02/16/17 0400 Results 24 hrs Laboratory Tests Test 02/15/17 21:10 02/16/17 04:00 Activated Partial Thromboplast Time 64.8 H 67.7 H White Blood Count 2.4 L Red Blood Count 3.81 L Hemoglobin 12.0 Hematocrit 35.8 L Mean Corpuscular Volume 94.0 Mean Corpuscular Hemoglobin 31.5 Mean Corpuscular Hemoglobin Concent 33.5 Red Cell Distribution Width 12.3 Platelet Count 208 Mean Platelet Volume 11.3 H Neutrophils % 48.3 Lymphocytes % 39.5 Monocytes % 10.1 Eosinophils % 1.3 Basophils % 0.4 Nucleated Red Blood Cells % 0.0 Neutrophils # 1.2 L Lymphocytes # 0.9 Monocytes # 0.2 L Eosinophils # 0.0 Basophils # 0.0 Nucleated Red Blood Cells # 0.0 Prothrombin Time 15.4 H Prothrombin Time Ratio 1.2 INR International Normalized Ratio 1.21 Sodium Level 140 Potassium Level 3.4 L Chloride Level 109 Carbon Dioxide Level 26 Anion Gap 8 Blood Urea Nitrogen 5 L Creatinine 0.71 Glucose Level 127 Calcium Level 10.4 H Ionized Calcium (Measured) 1.4 Medications Medications Current Medications Ondansetron HCl (Zofran Inj) 4 mg Q6H PRN IV NAUSEA AND/OR VOMITING; Start at 01:30 Acetaminophen (Tylenol Supp) 650 mg Q4H PRN [place] PAIN LEVEL 1-3 OR FEVER; Start 02/12/17 at 01:30 Pantoprazole (Protonix Iv) 40 mg DAILY@06 IV Last administered on 02/16/17 05: 34; Admin Dose 40 MG; Start 02/12/17 at 06:00 Labetalol HCl (Labetalol) 10 mg Q10M PRN IV ELEVATED BLOOD PRESSURE; Start at 01:30 Acetaminophen (Tylenol Tab) 650 mg Q4H PRN PO Temp greater than 99.6F; Start at 01:30 Docusate Sodium (Colace) 100 mg BID PO Last administered on 02/16/17 08:38; Admin Dose 100 MG; Start 02/12/17 at 09:00 Atorvastatin Calcium (Lipitor) 80 mg HS PO Last administered on 02/15/17 20:13 ; Admin Dose 80 MG; Start 02/12/17 at 21:00 Carvedilol (Coreg) 6.25 mg BID PO Last administered on 02/16/17 13:20; Admin Dose 6.25 MG; Start 02/12/17 at 09:30 Valsartan (Diovan) 80 mg DAILY PO Last administered on 02/16/17 13:20; Admin Dose 80 MG; Start 02/12/17 at 09:30 Aspirin (Aspirin) 81 mg DAILY PO Last administered on 02/16/17 08:38; Admin Dose 81 MG; Start 02/13/17 at 09:00; Stop 02/17/17 at 04:00 Clopidogrel Bisulfate (plaVIX) 75 mg DAILY PO Last administered on 02/16/17 08 :38; Admin Dose 75 MG; Start 02/13/17 at 09:00 Warfarin Sodium (Coumadin) 7 mg DAILY@17 PO ; Start 02/16/17 at 17:00; Status UNV Warfarin Sodium (Coumadin) 5 mg NOW ONCE PO ; Start 02/16/17 at 15:30; Stop at 15:31; Status CARLOZ GARCIA MD February 16, 2017 15:13
[2017-02-16] MEDS ORDERED: POTASSIUM CHLORIDE (SR) 20 MEQ TAB PO STA (15:16)
--- NOTE | 2017-02-16 15:19 | PN ---
DATE: 02/16/2017 CARDIOLOGY FOLLOWUP SUBJECTIVE: Discussed with the staff. Rhythm strip was reviewed. The patient remains in sinus rhy thm. Denies any chest pain or pressure to me. MEDICATIONS: Reviewed. PHYSICAL EXAMINATION: VITAL SIGNS: Temperature 98.4, heart rate of 66, blood pressure 101/64, respiration rate of 18, sat urating 97%. HEENT: Normocephalic, atraumatic. No acute distress. Pupils equal and round. CARDIOVASCULAR: Regular rate and rhythm. PULMONARY: No wheezes, rales or rhonchi. GASTROINTESTINAL: Soft, nontender. EXTREMITIES: No edema. NEUROLOGIC: Awake and alert. PSYCHIATRIC: Appeared to be calm. LABORATORY: WBC of 12.4, hemoglobin 12, platelets of 208. INR is 1.21. Sodium 140, potassium 3.4, BUN of 55, creatinine 0.71, glucose 124. ASSESSMENT AND PLAN: 1. Coronary artery disease, status post recent ST elevated myocardial infarction, status post recen t percutaneous coronary intervention. 2. Acute cerebrovascular accident. 3. LV thrombus, still in cardiomyopathy. 4. History of hypertension, currently under good control. 5. Dyslipidemia. RECOMMENDATIONS: We will continue with the current cardiac care. Consider changing the heparin dri p to Lovenox if okay with neurology. Aspirin and Plavix will be continued for now. Dr. Osborn wi ll resume care tomorrow. Dictated By: MELISSA KO MD AV/ABDIFATAH Conf#: [id number] DID#: [id number] CC: NURIS OSBORN MD;*End*
[2017-02-16] MEDS ORDERED: WARFARIN 5 MG TAB PO ONE (15:30)
[2017-02-16] MEDS ORDERED: WARFARIN 2 MG TAB PO SCH (17:00)
[2017-02-16] MEDS ORDERED: WARFARIN 5 MG TAB PO SCH (17:00)
[2017-02-16] MEDS: ATORVASTATIN 80 MG TAB PO SCH (20:29)
[2017-02-17] VITALS (10 sets, daily range): BP systolic 102–119; BP diastolic 59–77; PULSE 63–73; RESP 18
[2017-02-17] MEDS ORDERED: PANTOPRAZOLE (EC) 40 MG TAB PO SCH (06:00)
[2017-02-17] MEDS: CLOPIDOGREL 75 MG TAB PO SCH (08:15)
[2017-02-17] MEDS: DOCUSATE SODIUM 100 MG CAP PO SCH (08:15)
[2017-02-17] MEDS: VALSARTAN 80 MG TAB PO SCH (08:15)
[2017-02-17] MEDS ORDERED: ASPIRIN 81 MG TAB PO SCH (09:00)
[2017-02-17 09:38] LABS: ADD SCAN DIFF NO
[2017-02-17 09:41] LABS: BASOPHILS % 0.4 % (0.0-2.0); EOSINOPHILS % 1.7 % (0.0-7.0); HEMATOCRIT 38.6 % (37.0-47.0); HEMOGLOBIN 12.3 g/dl (12.0-16.0); LYMPHOCYTES # 0.8 10^3/ul (0.8-2.9); LYMPHOCYTES % 34.3 % (15.0-51.0); MEAN CORPUSCULAR HEMOGLOBIN 30.5 pg (29.0-33.0); MEAN CORPUSCULAR HGB CONC 31.9 g/dl (32.0-37.0); MEAN CORPUSCULAR VOLUME 95.8 fl (82.0-101.0); MEAN PLATELET VOLUME 11.3 fl (7.4-10.4); MONOCYTE # 0.2 10^3/ul (0.3-0.9); MONOCYTES % 8.7 % (0.0-11.0); NEUTROPHIL # 1.3 10^3/ul (1.6-7.5); NEUTROPHILS % 54.9 % (39.0-77.0); PLATELET COUNT 194 10^3/UL (140-415); RED BLOOD COUNT 4.03 10^6/ul (4.20-5.40); RED CELL DISTRIBUTION WIDTH 12.5 % (11.5-14.5); WHITE BLOOD COUNT 2.4 10^3/ul (4.8-10.8)
[2017-02-17 09:48] LABS: POTASSIUM 4.1 mmol/L (3.5-5.1)
[2017-02-17 09:53] LABS: CALCIUM 10.2 mg/dl (8.4-10.2); CREATININE 0.72 mg/dl (0.44-1.00)
[2017-02-17] MEDS: HEPARIN 25000 UNITS/250 ML 250 ML IV SCH (09:54)
[2017-02-17 09:57] LABS: INR 1.86; PROTIME 21.6 Sec (12.2-14.2); PT RATIO 1.7
[2017-02-17] MEDS ORDERED: RIVA15TA PO ×2 (11:08→16:00)
[2017-02-17] MEDS ORDERED: RIVA20TA PO ×2 (11:08→16:00)
[2017-02-17] MEDS ORDERED: CLOP75TA28 PO (15:53)
--- NOTE | 2017-02-17 15:54 | PDOCDIS ---
Discharge Instructions CONDITION Patient Condition: Good HOME CARE INSTRUCTIONS: Special Diet: cardiac diet ACTIVITY: Activity Restrictions: No Restrictions FOLLOW UP/APPOINTMENTS Appointments F/U WITH YOUR PCP IN 1-2 WEEKS YOHANNES GAUTHIER February 17, 2017 15:54
--- NOTE | 2017-02-18 04:00 | DS ---
DATE OF ADMISSION: 02/12/2017 DATE OF DISCHARGE: 02/17/2017 FINAL DIAGNOSES: 1. Acute cerebrovascular accident. The patient had acute infarctions in the right parietal lobe as well as the posterior left insular cortex as well as left occipital lobe. The patient is able to a mbulate and does not need stent placement at this time. 2. Recent ST elevation myocardial infarction status post percutaneous coronary intervention. Bean nue aspirin, Plavix, statin, and beta keisha. 3. Left ventricular thrombus. Because of patient's recent CVA, we will hold off on anticoagulation as the risk of bleeding intracranially from recent stroke is high, especially considering the patie nt is on aspirin and Plavix. The patient is to follow up with PCP for anticoagulation if the patien t continues to have a left ventricular thrombus. 4. Cardiomyopathy. Follow up with cardiology. 5. History of hypertension, under good control. Continue home medications. 6. Dyslipidemia. Continue statin. HOSPITAL COURSE: The patient is a 56-year-old female with history of recent ST-elevation myocardial infarction, status post PCI. The patient presents with acute CVA. The patient did receive tPA. T he patient had improvement of her speech as well as right upper and lower extremity weakness. The p atient was seen by neurology. The patient did have a 2D echo that showed 45% EF as well as mildly r educed left ventricular systolic function with akinesis in the distribution of the LAD, mobile throm bus seen at the apex. Bubble study was negative for right to left shunting. The patient was starte d on heparin drip as well as Coumadin. The patient was restarted on her cardiac medications. She w as seen by PT, and her condition improved. No skilled PT was recommended as the patient was able to ambulate on her own. Recommendation was for the patient to continue ambulating at home. Case chet paiz did arrange for home health PT and home safety evaluation. Upon further review, it was felt beatriz t the patient actually could be started on anticoagulation in addition to aspirin and Plavix as the patient was started on Coumadin during the hospitalization. The patient was felt to be stable for d ischarge. On the day of discharge, the patient's vitals, labs, and physical exam were stable. She had no acute complaints, and questions were answered. CONDITION ON DISCHARGE: Stable. DISPOSITION: To home with home health. MEDICATIONS: The patient will continue her usual home medications. She was given a new prescriptio n for Plavix. ____ prescription. She was also given a prescription for Xarelto 15 mg p.o. b.i.d. f or 21 days and then 20 mg daily for 90 days. The patient is to continue other home medications. FOLLOWUP: The patient is to follow up with her PCP in 1 to 2 weeks and the weld inspector. Greater than 30 minutes was spent coordinating discharge of patient. Dictated By: YOHANNES GAUTHIER MD BS/NTS Conf#: [id number] DID#: [id number]
== END 2017-02-17 17:25 | disposition home health service (06) | DRG 61 ==
LOC: E/R 20:04 → ICU 02-12 01:36 → TEL 02-14 18:42
PROVIDERS: ADMIT Family Medicine; ATTEND Family Medicine
DX: I63.412 Cerebral infarction due to embolism of left middle cerebral artery (principal); I21.09 ST elevation (STEMI) myocardial infarction involving other coronary artery of anterior wall; I42.9 Cardiomyopathy, unspecified; I50.22 Chronic systolic (congestive) heart failure; I51.3 Intracardiac thrombosis, not elsewhere classified; E78.5 Hyperlipidemia, unspecified; I10 Essential (primary) hypertension; I25.10 Atherosclerotic heart disease of native coronary artery without angina pectoris; R29.712 NIHSS score 12; I25.5 Ischemic cardiomyopathy; G83.21 Monoplegia of upper limb affecting right dominant side; Z95.5 Presence of coronary angioplasty implant and graft; Z91.14 Patient's other noncompliance with medication regimen
CPT/HCPCS: 70450; 70496; 70551; 71010; 80048; 80053; 80061; 80307; 81001; 81003; 82330; 82550; 82553; 83036; 83735; 84100; 84484; 85025; 85610; 85730; 86850; 86900; 86901; 87081; 92507; 92526; 92610; 93005; 93308; 93880; 97110; 97116; 97162; 97530; C9113; J1644; J2765; J2997; J3480; J7030; J7040; J7070; Q9967

== ENCOUNTER 2017-05-26 10:36 | Emergency (ER) | payer MEDICAID, OTHER ==
[~2017-05-26] VITALS: Ht 167.6 cm; Wt 70.5 kg
[~2017-05-26 10:36] MED LIST changes: -Nicotine (14 Mg/24 Hr) TRANSDERM; +RIVA15TA PO; +RIVA20TA PO
[2017-05-26 10:39] VITALS: Ht 167.6 cm; Wt 70.5 kg
--- NOTE | 2017-05-26 16:13 | ERD ---
ER Documentation Chief Complaint Date/Time DATE: 05/26/17 TIME: 16:05 Chief Complaint REQUESTING DOCTOR NOTE TO RETURN TO WORK, NO COMPLAINT HPI Is a 57-year-old female presents emergency department today for a doctor's note to return to work. Patient states that on February 04 she had a heart attack and then 1 week later she had a stroke. States that she saw Dr. Pearl in the hospital and was told that she would need to come to the emergency department to get cleared by her doctor. States she does not have a primary care physician. Denies any complaints at this time. ROS All systems reviewed and are negative except as per history of present illness. Medications Home Meds Active Scripts Rivaroxaban* (Xarelto*) 20 Mg Tablet, 20 MG PO WITH DINNER for 90 Days, TAB Prov:YOHANNES PEARL 02/17/17 Rivaroxaban* (Xarelto*) 15 Mg Tablet, 15 MG PO BID for 21 Days, TAB Prov:YOHANNES PEARL 02/17/17 Clopidogrel Bisulfate (Clopidogrel) 75 Mg Tablet, 75 MG PO DAILY, #60 TAB 1 Refill Prov:YOHANNES PEARL 02/17/17 Aspirin (Aspirin) 81 Mg Chew, 81 MG PO DAILY for 30 Days, #30 TAB 6 Refills Prov:DIOGO ALMODOVAR MD 02/05/17 Valsartan* (Diovan*) 160 Mg Tablet, 160 MG PO DAILY for 14 Days, #14 TAB Prov:DIOGO ALMODOVAR MD 02/05/17 Nitroglycerin* (Nitrostat*) 0.4 Mg Tab.subl, 1 TAB SL .Q5M UP TO 3 DOSES Y for CHEST PAIN for 7 Days, #10 1 Refill Prov:DIOGO ALMODOVAR MD 02/05/17 Carvedilol* (Carvedilol*) 12.5 Mg Tablet, 12.5 MG PO BID for 14 Days, #30 TAB Prov:DIOGO ALMODOVAR MD 02/05/17 Atorvastatin* (Atorvastatin*) 80 Mg Tablet, 80 MG PO HS for 30 Days, #30 TAB 1 Refill Prov:DIOGO ALMODOVAR MD 02/05/17 Allergies Allergies: Coded Allergies: No Known Allergy (Unverified , 02/11/17) PMhx/Soc History of Surgery: Yes Anesthesia Reaction: No Hx Neurological Disorder: No Hx Respiratory Disorders: No Hx Cardiac Disorders: Yes (STENT PLACEMENT X 2 02/04/17) Hx Psychiatric Problems: No Hx Miscellaneous Medical Probl: Yes ([place],CARDIAC STENT) Hx Alcohol Use: No Hx Substance Use: No Hx Tobacco Use: Yes Smoking Status: Former smoker Physical Exam Vitals Vital Signs Date Time Temp Pulse Resp B/P Pulse Ox O2 Delivery O2 Flow Rate FiO2 05/26/17 10:39 98.4 96 16 124/81 97 Physical Exam Const: No acute distress Head: Atraumatic Eyes: Mild icteric conjunctive PERRLA. EOM intact. ENT: Normal External Ears, Nose and Mouth. Neck: Full range of motion..~ No meningismus. Resp: Clear to auscultation bilaterally Cardio: Regular rate and rhythm, no murmurs Abd: Soft, non tender, non distended. Normal bowel sounds Skin: No petechiae or rashes Back: No midline or flank tenderness Ext: No cyanosis, or edema Neur: Awake and alert Psych: Normal Mood and Affect Procedures/MDM This is a 57-year-old female who presents the emergency department today for clearance to go back to work. Patient indicated that she had [place] on February 04 and 1 week later she had a stroke. Upon review of patient's medical records was admitted here on February 04 for an acute STEMI and again on February 12 for a stroke. Patient had been seen by the hospitalist Dr. Pearl, and was given a note that restricted her only for February 12 - April 14. Patient was under the impression that she was supposed to come back here to the emergency department to see Dr. Pearl to be cleared to return to work. I have explained to the patient that Dr. Pearl is a hospitalist here and she saw him as she was admitted here. Patient indicated she does not have a primary care physician. I placed a call to Dr. Pearl, who indicated that if he wrote the note the restrictions were only for February 12 - April 14 and that he felt that she would be able to return to work after such time. I have reiterated this to the patient. I have explained to the patient that she does need to follow-up with her primary care doctor. Patient indicated that she was going to go through her work at the [employer] [facility] to get a primary care doctor. Son was concerned as the mother was taking Xarelto and he has seen commercials on TV that states that it may cause "". I have explained to him that she does need to be on this medication however I also explained to him that there are also other anticoagulant medications that she may take but she would need a primary care doctor for follow-up and repeat laboratory work monthly. Patient and son understood. Patient was also counseled for greater than 3 minutes on smoking cessation At this time patient has no complaints. I do not feel that she requires further workup or imaging at this time. Patient was given a work note. Instructed to follow-up with her primary care doctor for further medication management or refills. At this time the patient is stable for discharge and outpatient management. Patient should follow up with their PCP in the next 1-2 days. They may return to the emergency department sooner for any persistent or worsening of symptoms. Patient understood and agreed with the plan. Discussed the patient with Dr. Rios and he is in agreement with the plan. Departure Diagnosis: Primary Impression: Return to work exam Condition: Fair Referrals: your PCP Additional Instructions: Call your primary care doctor TOMORROW for an appointment during the next 1-2 days.See the doctor sooner or return here if your condition worsens before your appointment time. Follow up with your primary care doctor for refills of medications Continue taking all your medications as prescribed RYAN HERRING PA-C May 26, 2017 16:13
== END 2017-05-26 14:12 | disposition home or self-care (01) ==
LOC: FTE 10:36
DX: Z02.89 Encounter for other administrative examinations (principal); Z79.01 Long term (current) use of anticoagulants; Z79.82 Long term (current) use of aspirin; Z87.891 Personal history of nicotine dependence; Z98.61 Coronary angioplasty status
CPT/HCPCS: 99282